=== PATIENT | male | born 1960 | race Caucasian/White ===

== ENCOUNTER 2021-08-02 00:53 | Inpatient (IN) | payer SELFPAY ==
[~2021-08-02] VITALS: Ht 172.7 cm; Wt 126.3 kg
[2021-08-02] MEDS ORDERED: VANCOMYCIN PER PHARMACY MC PRN (01:45)
[2021-08-02] MEDS ORDERED: IV NORMAL SALINE 1000ML BAG 1,000 ML IV SCH (01:45)
--- NOTE | 2021-08-02 01:45 | PHYS DOC ---
General Adult HPI: HPI: 60-year-old male, past medical history for tobacco use for 30 years, presents to the ED with complaints of exertional shortness of breath that has worsened over the past month, with associated abdominal pain and leg swelling. Patient reports he has not been to a physician in years. No known history of having COVID-19 infection. Is not vaccinated for Covid. Denies any known history of coronary artery disease, stroke, COPD or congestive heart failure. Takes no routinely prescribed medications. Denies any heavy alcohol consumption or history of liver disease. Denies any IV drug use. Review of Systems: Review of Systems: Constitutional: Denies fever or chills. [] Eyes: Denies change in visual acuity. [] HENT: Denies nasal congestion or sore throat. [] Respiratory: Denies cough or hemoptysis Cardiovascular: Denies chest pain or edema. [] GI: Denies nausea, vomiting, bloody stools or diarrhea. [] : Denies dysuria hematuria Musculoskeletal: Denies back pain or joint pain. [] Integument: Denies rash or diaphoresis Neurologic: Denies headache, focal weakness or sensory changes. [] Endocrine: Denies polyuria or polydipsia. [] Lymphatic: Denies swollen glands. [] Psychiatric: Denies depression or anxiety. [] Heart Score: C/O Chest Pain: No Risk Factors: Risk Factors: DM, Current or recent (<one month) smoker, HTN, HLP, family history of CAD, obesity. Risk Scores: Score 0 - 3: 2.5% MACE over next 6 weeks - Discharge Home Score 4 - 6: 20.3% MACE over next 6 weeks - Admit for Clinical Observation Score 7 - 10: 72.7% MACE over next 6 weeks - Early Invasive Strategies Physical Exam: PE: Constitutional: habitus retricts pts' ability to stand up/walk, weight centered in abdomen HENT: Normocephalic, atraumatic, Eyes: EOMI, conjunctiva normal, no discharge. Neck: Normal range of motion, supple, Cardiovascular: S1/2 present, irregular rhythm Lungs & Thorax: Speaking in 2-3 sentences, bilateral equal chest rise, increased work of breathing w/activity Abdomen: soft, very large abdominal pannus/hernia (at least 20 cm wide) with erythema/warmth over inferior aspect, no crepitus Skin: Warm, dry, no erythema, no rash. [] Back: No tenderness, no CVA tenderness. [] Extremities: no cyanosis, bilateral equal lower extremity edema Neurologic: Alert and oriented X 3, normal motor function, normal sensory function, no focal deficits noted. [] Psychologic: Affect normal, judgement normal, mood normal. [] : chaperoned by RN, circumsized, no rash or ttp, EKG: EKG: Irregular regular rhythm with no P waves found, QTC 489, cannot appreciate any ST elevations or ST depressions, patient denies any chest pain repeat EKG with concern for a flutter at 121 bpm unremarkable intervals, no TRAN/STD, after first dose of Cardizem patient reports that shortness of breath has improved Radiology/Procedures: Radiology/Procedures: IMAGING REPORT Signed PATIENT: CHLESY POE IACCOUNT: [id number] : 1960 LOCATION: ER AGE: 60 SEX: M EXAM STATUS: REG ER ORD. PHYSICIAN: JOSEY CHRISTIAN DO REASON: soa PROCEDURE: PORTABLE CHEST 1V EXAMINATION: XR CHEST 1V CLINICAL HISTORY: Shortness of breath EXAM DATE/TIME: 08/02/2021 1:44 AM COMPARISON: None FINDINGS: Lines, Tubes, and Devices: None. Cardiomediastinal Silhouette: Cardiomegaly. Aortic atherosclerotic calcification. Lungs and Pleura: Small right and questionable left pleural effusions with right greater than left basilar airspace disease. Bilateral hilar fullness with findings suggestive of pulmonary vascular congestion.. Bones and Soft Tissues: No acute osseous abnormality. IMPRESSION: Cardiomegaly with findings suggestive of mild volume overload as described. Electronically signed by: Evaristo Armijo DO (08/02/2021 1:59 AM) [facility] DICTATED and SIGNED BY: EVARISTO ARMIJO DO DATE: 08/02/21 [id number] IMAGING REPORT Signed PATIENT: CHELSY POE IACCOUNT: [id number] : 1960 LOCATION: ER AGE: 60 SEX: M EXAM STATUS: REG ER ORD. PHYSICIAN: JOSEY CHRISTIAN DO REASON: bl le swelling PROCEDURE: VENOUS LOWER EXT BILATERAL EXAMINATION: US BILATERAL LOWEREXTREMITY VENOUS DOPPLER (LOWER EXTREMITY VENOUS ULTRASOUND) CLINICAL HISTORY: Bilateral lower extremity edema TECHNIQUE: Sonographic grayscale images obtained of the bilateral lower extremity deep venous systems with color flow Doppler, compression, and augmentation techniques as indicated. Images obtained and stored in a permanent archive. COMPARISON: None FINDINGS: RIGHT: No evidence of absent flow or incompressibility within the common femoral vein, femoral vein, or popliteal vein. Visualized calf veins appear patent on limited evaluation. Subcutaneous edema in the lower leg. LEFT: No evidence of absent flow or incompressibility within the common femoral vein, femoral vein, or popliteal vein. Visualized calf veins appear patent on limited evaluation. Subcutaneous edema in the lower leg. IMPRESSION: No evidence of bilateral lower extremity DVT. Electronically signed by: Evaristo Armijo DO (08/02/2021 3:04 AM) [facility] DICTATED and SIGNED BY: EVARISTO ARMIJO DO DATE: 08/02/21 [id number] IMAGING REPORT Signed PATIENT: CHELSY POE IACCOUNT: [id number] : 1960 LOCATION: ER AGE: 60 SEX: M EXAM STATUS: REG ER ORD. PHYSICIAN: JOSEY CHRISTIAN DO REASON: soa, r/o pe;OMNI 350, 100ML PROCEDURE: CT ANGIO CHEST W ABD PEL W/ EXAMINATION: CTA CHEST_ABDOMEN_AND PELVIS CLINICAL HISTORY: Shortness of breath Technique: Spiral CT acquisition of the chest from the thoracic inlet to the upper abdomen following IV contrast with coronal and sagittal reformatted images also provided for review. 3D maximum intensity projection images also performed. CT Dose Reduction Employed: One or more of the following individualized dose reduction techniques were utilized for this examination: 1. Automated exposure control 2. Adjustment of the mA and/or kV according to patient size 3. Use of iterative reconstruction technique. Comparison: Chest radiograph same day FINDINGS: Suboptimal opacification of the pulmonary arterial system limits evaluation. Pulmonary Vasculature: No evidence of main, lobar, or definite proximal segmental pulmonary arterial thrombus. Lung Parenchyma, Pleura, and Airways: Moderate right pleural effusion with over lying airspace disease. Right apical blebs/bulla and mild scarring. Minimal curvilinear subsegmental atelectasis and/or scarring in the inferolateral upper lobes and left base. No focal consolidation. Central airways patent. Lower Neck, Lymph Nodes, and Mediastinum: Visualized thyroid gland within normal limits. No mediastinal lymphadenopathy. Prominent left axillary lymph nodes, nonspecific but possibly reactive. Heart, Pericardium, and Thoracic Vessels: Cardiomegaly. Aortic atherosclerotic calcification without aneurysm. Abdomen/Pelvis: Cholelithiasis. Liver, pancreas, spleen, adrenal glands, and kidneys unremarkable. Mildly filled urinary bladder. Coarse central prostatic calcifications. Mild colonic diverticulosis without definitive evidence of acute diverticulitis. No dilated bowel. Large ventral hernia containing loops of nonobstructed small bowel and colon as well as moderate free fluid. Hernia neck measures approximately 9.7 x 10.7 cm (AP x TRV). Smaller fat-containing ventral hernia immediately inferior to this. Additional intraperitoneal free fluid greatest in the perihepatic region. Arterial atherosclerotic calcification without aneurysm. Bones and Soft Tissues: Mild compression deformity in the L1 superior endplate with superimposed Schmorl's node. Remote bilateral L4 spondylolysis with grade 1 L4-5 anterolisthesis. Multilevel thoracolumbar degenerative changes. IMPRESSION: CHEST: No evidence of main, lobar, or definite proximal segmental pulmonary embolism on somewhat limited evaluation as described. Moderate right pleural effusion with overlying airspace disease. Cardiomegaly. ABDOMEN/PELVIS: Mild to moderate ascites. Large ventral hernia containing nonobstructed small bowel, colon, and free fluid. Electronically signed by: Evaristo Armijo DO (08/02/2021 4:41 AM) [facility] DICTATED and SIGNED BY: EVARISTO ARMIJO DO DATE: 08/02/21 [id number] Course & Med Decision Making: Course & Med Decision Making Pertinent Labs and Imaging studies reviewed. (See chart for details) Concern for new onset CHF and afib w/rvr in the setting of abdominal wall cellulitis. Dyspnea improved after cardizem slowed rate down-required cardizem infusion. No LE DVT. Pt not requiring any oxygen. Will admit for further medical management. Patient stable at time admission and agrees with this plan. I have spoken with the patient and/or caregivers. I have explained the patient's condition, diagnosis and treatment plan based on the information a vailable to me at this time. I have answered the patient's and/or caregivers questions and answered any concerns. The patient and/or caregivers have as good an understanding of the patient's diagnosis, condition and treatment plan as can be expected at this point. The patient has been stabilized within the capability of the emergency department. The patient will be transported for further care and management or will be moved to an observation or inpatient service. I have communicated with the staff or medical practitioner taking over this patient's care. Critical Care: Authorized and Performed by: Josey Christian DO Total critical care time: approximately 30 minutes Due to a high probability of clinically significant, life threatening deterioration, the patient required my highest level of preparedness to intervene emergently and I personally spent this critical care time directly and personally managing the patient. This critical care time included obtaining a history; examining the patient; pulse oximetry; ventilator management if necessary; ordering and review of studies; arranging urgent treatment with development of a management plan; evaluation of patient's response to treatment; frequent reassessment; discussion with patient/family; and, discussions with other providers. This critical care time was performed to assess and manage the high probability of imminent, life-threatening deterioration that could result in multi-organ failure. It was exclusive of separately billable procedures and treating other patients and teaching time. Please see MDM section and the rest of the note for further information on patient assessment and treatment. Dragon Disclaimer: Dragon Disclaimer: This electronic medical record was generated, in whole or in part, using a voice recognition dictation system. Departure Departure Impression: Primary Impression: Atrial fibrillation with RVR Additional Impressions: Abdominal wall cellulitis Acute exacerbation of congestive heart failure Disposition: ADMITTED INPATIENT Admitting Physician: RAYOMND (Dr. Schreiber) Condition: GUARDED Referrals: NO PCP (PCP) JOSEY CHRISTIAN DO Aug 02, 2021 01:45
[2021-08-02 01:57] LABS: BASO # 0.1 x10^3/uL (0.0-0.2); BASO % 1 % (0-3); EOS # 0.1 x10^3/uL (0.0-0.7); EOS % 1 % (0-3); HEMATOCRIT 46.3 % (39.0-53.0); HEMOGLOBIN 15.4 g/dL (13.0-17.5); LYMPH # 1.1 x10^3/uL (1.0-4.8); LYMPH % 16 % (24-48); MEAN CORPUSCULAR HEMOGLOBIN 30 pg (25-35); MEAN CORPUSCULAR HGB CONC 33 g/dL (31-37); MEAN CORPUSCULAR VOLUME 90 fL (79-100); MONO % 14 % (0-9); NEUT # 4.7 x10^3/uL (1.8-7.7); NEUT % 68 % (31-73); PLATELET COUNT 285 x10^3/uL (140-400); RED BLOOD COUNT 5.16 x10^6/uL (4.30-5.70); RED CELL DISTRIBUTION WIDTH 15.3 % (11.5-14.5); WHITE BLOOD COUNT 6.9 x10^3/uL (4.0-11.0)
--- NOTE | 2021-08-02 02:01 | RAD ---
EXAMINATION: XR CHEST 1V CLINICAL HISTORY: Shortness of breath EXAM DATE/TIME: 08/02/2021 1:44 AM COMPARISON: None FINDINGS: Lines, Tubes, and Devices: None. Cardiomediastinal Silhouette: Cardiomegaly. Aortic atherosclerotic calcification. Lungs and Pleura: Small right and questionable left pleural effusions with right greater than left ba silar airspace disease. Bilateral hilar fullness with findings suggestive of pulmonary vascular conge stion.. Bones and Soft Tissues: No acute osseous abnormality. IMPRESSION: Cardiomegaly with findings suggestive of mild volume overload as described. Electronically signed by: Evaristo Duran DO (08/02/2021 1:59 AM) [facility]
[2021-08-02 02:12] LABS: CALCIUM 8.6 mg/dL (8.5-10.1); CREATININE 1.2 mg/dL (0.7-1.3); POTASSIUM 3.9 mmol/L (3.5-5.1); PROTHROMBIN TIME PATIENT 14.8 SEC (11.7-14.0)
[2021-08-02 02:17] LABS: ALBUMIN 3.3 g/dL (3.4-5.0); ALBUMIN/GLOBULIN RATIO 0.9 (1.0-1.7); TOTAL BILIRUBIN 1.2 mg/dL (0.2-1.0)
[2021-08-02] MEDS ORDERED: VANCOMYCIN 2 GM in IV NORMAL SALINE 500ML BAG 500 ML IV ONE (03:00)
--- NOTE | 2021-08-02 03:07 | RAD ---
EXAMINATION: US BILATERAL LOWEREXTREMITY VENOUS DOPPLER (LOWER EXTREMITY VENOUS ULTRASOUND) CLINICAL HISTORY: Bilateral lower extremity edema TECHNIQUE: Sonographic grayscale images obtained of the bilateral lower extremity deep venous systems with color flow Doppler, compression, and augmentation techniques as indicated. Images obtained and stored in a permanent archive. COMPARISON: None FINDINGS: RIGHT: No evidence of absent flow or incompressibility within the common femoral vein, femoral vein, or popl iteal vein. Visualized calf veins appear patent on limited evaluation. Subcutaneous edema in the lowe r leg. LEFT: No evidence of absent flow or incompressibility within the common femoral vein, femoral vein, or popl iteal vein. Visualized calf veins appear patent on limited evaluation. Subcutaneous edema in the lowe r leg. IMPRESSION: No evidence of bilateral lower extremity DVT. Electronically signed by: Evaristo Duran DO (08/02/2021 3:04 AM) [facility]
[2021-08-02 03:39] LABS: BILIRUBIN,URINE NEGATIVE (NEG); CLARITY,URINE CLEAR; COLOR,URINE YELLOW; NITRITE,URINE NEGATIVE (NEG); PH,URINE 5.5 (<5.0-8.0); PROTEIN,URINE 100 mg/dL (NEG-TRACE)
[2021-08-02 03:45] LABS: BARBITURATES NEG (NEG); BENZODIAZEPINES NEG (NEG); CANNABINOIDS POS (NEG); COCAINE NEG (NEG); METHADONE NEG (NEG); OPIATES NEG (NEG); PHENCYCLIDINE NEG (NEG)
[2021-08-02 03:46] LABS: AMPHETAMINE/METHAMPHETAMINE NEG (NEG)
[2021-08-02 03:47] LABS: AMORPHOUS SEDIMENT,UR PRESENT /HPF; BACTERIA,URINE 0 /HPF (0-FEW); HYALINE CASTS, URINE OCCASIONAL /HPF; RBC,URINE 0 /HPF (0-2); WBC,URINE OCC /HPF (0-4)
[2021-08-02] MEDS ORDERED: IOHEXOL 350 MG/ML 100 ML VIAL. IV ONE (04:15)
[2021-08-02] MEDS ORDERED: CONTRAST GIVEN. MC PRN (04:15)
--- NOTE | 2021-08-02 04:44 | RAD ---
EXAMINATION: CTA CHEST_ABDOMEN_AND PELVIS CLINICAL HISTORY: Shortness of breath Technique: Spiral CT acquisition of the chest from the thoracic inlet to the upper abdomen following IV contrast with coronal and sagittal reformatted images also provided for review. 3D maximum intensi ty projection images also performed. CT Dose Reduction Employed: One or more of the following individualized dose reduction techniques wer e utilized for this examination: 1. Automated exposure control 2. Adjustment of the mA and/or kV ac cording to patient size 3. Use of iterative reconstruction technique. Comparison: Chest radiograph same day FINDINGS: Suboptimal opacification of the pulmonary arterial system limits evaluation. Pulmonary Vasculature: No evidence of main, lobar, or definite proximal segmental pulmonary arterial thrombus. Lung Parenchyma, Pleura, and Airways: Moderate right pleural effusion with overlying airspace disease . Right apical blebs/bulla and mild scarring. Minimal curvilinear subsegmental atelectasis and/or sca rring in the inferolateral upper lobes and left base. No focal consolidation. Central airways patent. Lower Neck, Lymph Nodes, and Mediastinum: Visualized thyroid gland within normal limits. No mediastin al lymphadenopathy. Prominent left axillary lymph nodes, nonspecific but possibly reactive. Heart, Pericardium, and Thoracic Vessels: Cardiomegaly. Aortic atherosclerotic calcification without aneurysm. Abdomen/Pelvis: Cholelithiasis. Liver, pancreas, spleen, adrenal glands, and kidneys unremarkable. Mi ldly filled urinary bladder. Coarse central prostatic calcifications. Mild colonic diverticulosis wit hout definitive evidence of acute diverticulitis. No dilated bowel. Large ventral hernia containing l oops of nonobstructed small bowel and colon as well as moderate free fluid. Hernia neck measures appr oximately 9.7 x 10.7 cm (AP x TRV). Smaller fat-containing ventral hernia immediately inferior to thi s. Additional intraperitoneal free fluid greatest in the perihepatic region. Arterial atherosclerotic calcification without aneurysm. Bones and Soft Tissues: Mild compression deformity in the L1 superior endplate with superimposed Schm orl's node. Remote bilateral L4 spondylolysis with grade 1 L4-5 anterolisthesis. Multilevel thoracolu mbar degenerative changes. IMPRESSION: CHEST: No evidence of main, lobar, or definite proximal segmental pulmonary embolism on somewhat limited rosanne luation as described. Moderate right pleural effusion with overlying airspace disease. Cardiomegaly. ABDOMEN/PELVIS: Mild to moderate ascites. Large ventral hernia containing nonobstructed small bowel, colon, and free fluid. Electronically signed by: Evaristo Duran DO (08/02/2021 4:41 AM) [facility]
--- NOTE | 2021-08-02 06:23 | NUR ---
Pharmacy Vancomycin Dosing Note S:Consulted to monitor and dose vancomycin started 08/02/21. O:[address] I is a 60 year old M with Cellulitis ABDOMINAL WALL . Height: 5 feet, 8 inches Weight: 100.0 kg [place] Body Weight: 68.40 Adjusted Body Weight: 81.04 Dosing Weight: Actual Other Antibiotics: LABS: Last BUN: 15 Last Creatinine: 1.2 Creatinine Clearance: 76 mL/min Last WBC: 6.9 Last Procalcitonin: - Tmax (past 24 hours): 97 Microbiology: 08/02 BCX PENDING I/O: Drug Levels: Last level: on at Last dose given 08/02/21 at 0300 Vancomycin Dosing: Loading Dose: 2000 mg x1 Dosing Weight: Actual Target Trough: - A: Based on: WEIGHT, CRCL~76, P: 1. INITIATE Vancomycin 1500 mg IV q12h AFTER 2000 MG LOADING DOSE 2. Follow up Trough level on 08/03/21 at 1430 3. Pharmacy will continue to monitor, follow and adjust therapy as needed. TYLER JIM [facility], 08/02/21 [id number]
--- NOTE | 2021-08-02 06:27 | EKG ---
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
--- NOTE | 2021-08-02 06:32 | EKG ---
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
[2021-08-02] MEDS ORDERED: PIP/TAZO PER PHARMACY MC PRN (09:00)
--- NOTE | 2021-08-02 09:13 | HP ---
DATE OF SERVICE: 08/02/2021 ADMIT DATE: 08/02/2021 CHIEF COMPLAINT: Shortness of breath, abdominal pain, leg swelling. HISTORY OF PRESENT ILLNESS: The patient is a pleasant 60-year-old male who appears older than his stated age. Basically, he came into the hospital because his abdomen is quite distended. It appears he has a very large abdominal hernia that has not been addressed. He states he never goes to the doctor. He is also short of breath. He is in heart failure. His BNP level is 3447. His chest x-ray is showing cardiomegaly and volume overload. He also has cellulitis on his abdomen. He is also tachycardic with some probable tachyarrhythmia perhaps atrial fibrillation. I discussed the case with ER physician. We are going to admit the patient and consult General Surgery, Cardiology and start IV antibiotics. PAST MEDICAL HISTORY: Noncompliance. He states he never goes to the doctor. ALLERGIES: None. FAMILY HISTORY: Diabetes. SOCIAL HISTORY: Does not drink, smoke or take drugs. MEDICATIONS: Reviewed, please refer to the MRAD. REVIEW OF SYSTEMS: GENERAL: No history of weight change, weakness or fevers. SKIN: No bruising, hair changes or rashes. EYES: No blurred, double or loss of vision. NOSE AND THROAT: No history of nosebleeds, hoarseness or sore throat. HEART: No history of palpitations, chest pain or shortness of breath on exertion. PULMONARY: He complains of shortness of breath. ABDOMEN: He complains of abdominal distention and abdominal pain. GENITOURINARY: No history of frequency, urgency, hesitancy or nocturia. NEUROLOGIC: Denies history of numbness, tingling, tremor or weakness. PSYCHIATRIC: No history of panic, anxiety or depression. ENDOCRINE: No history of heat or cold intolerance, polyuria or polydipsia. EXTREMITIES: He complains of edema. PHYSICAL EXAMINATION: VITALS: Within normal limits and are stable. GENERAL: He is in moderate distress, appears short of breath. HEENT: Normal cephalic atraumatic, external auditory canals are patent. EYES: Extraocular muscles are intact, pupils are equally round and reactive to light and accommodation. MUSCULOSKELETAL: Well developed, well nourished, good range of motion. ENDOCRINE: No thyromegaly was palpated, LYMPHATICS: No cervical chain or axillary nodes were noted. HEMATOPOIETIC: No bruising. NECK: Supple, no JVD, no thyromegaly was noted. LUNGS: Clear to auscultation in all lung fernández without rhonchi or wheezing. HEART: RRR, S1, S2 present. Peripheral pulses intact, no obvious murmurs were noted. ABDOMEN: He has a massive abdominal hernia with overlying cellulitis. EXTREMITIES: He has 2-3+ edema. NEUROLOGIC: He is very weak. PSYCHIATRIC: He appears depressed. SKIN: He has abdominal cellulitis. VASCULAR: Good capillary refill, neurovascular bundle appears to be intact. LABORATORY DATA: White count 6.9, hemoglobin 15.4, platelets 285. Electrolytes are pending. Troponin is 0.039. BNP is 3447. Chest x-ray shows cardiomegaly and vascular congestion. Drug screen is positive for marijuana. Urinalysis is negative. INR 1.2. COVID testing is negative. ASSESSMENT AND PLAN: Acute on chronic systolic and diastolic heart failure, massive abdominal hernia, cellulitis, and atrial fibrillation. The patient has been admitted. We will start IV antibiotics. Consult Cardiology. Consult General Surgery. Cardiac monitoring. He got a couple doses of vancomycin in the ER. We have a Cardizem drip ordered. Trend labs. Home meds. Deep venous thrombosis prophylaxis. CODE STATUS: Full code. PROGNOSIS: Long-term, guarded. BRANDON/ZHANG DR: Alexus TID: [id number]
[2021-08-02] MEDS ORDERED: MORPHINE SULFATE 2 MG/ML INJ. IV PRN (09:15)
[2021-08-02] MEDS: PIPERACILLIN/TAZOBACTAM 3.375 GM in IV NORMAL SALINE 50ML 50 ML IV SCH ×3 (10:50→23:51)
--- NOTE | 2021-08-02 10:55 | PDOC2 ---
CONSULT Date of Consult Date of Consult DATE: 08/02/21 TIME: 10:45 History of Present Illness Reason for Visit: The patient is a 60 year old male who was admitted with progressive abdominal distension and shortness of breath. He admits to not having a doctor or seeking medical attention in the past. He states the abdominal distension has been ongoing for some time. He is eating well and denies problems with bowel function. Past Medical History Past Medical History Asthma as a child, otherwise he denies Past Surgical History Past Surgical History denies Social History Quit Lives: Friends Current Problem List Problem List Problems Medical Problems: (1) Abdominal wall cellulitis Status: Acute (2) Acute exacerbation of congestive heart failure Status: Acute (3) Atrial fibrillation with RVR Status: Acute Current Medications Current Medications Current Medications Sodium Chloride 1,000 ml @ 1,000 mls/hr Q1H IV Last administered on 08/02/21at 01:45; Start 08/02/21 at 01:45; Stop 08/02/21 at 02:44; Status DC Diltiazem HCl (Cardizem Iv Push) 20 mg 1X ONCE IVP Last administered on at 02:05; Start 08/02/21 at 01:45; Stop 08/02/21 at 02:04; Status DC Vancomycin HCl (Vanco Per Pharmacy) 1 each PRN DAILY PRN MC SEE COMMENTS Last administered on 08/02/21at 06:20; Start 08/02/21 at 01:45; Stop 08/02/21 at 08:51; Status DC Vancomycin HCl 2 gm/Sodium Chloride 500 ml @ 250 mls/hr 1X ONCE IV Last administered on 08/02/21at 03:01; Start 08/02/21 at 03:00; Stop 08/02/21 at 04:59; Status DC Diltiazem HCl (Cardizem Iv Push) 20 mg 1X ONCE IVP Last administered on 08/02/21at 04:47; Start 08/02/21 at 03:45; Stop 08/02/21 at 03:46; Status DC Iohexol (Omnipaque 350 Mg/ml) 100 ml 1X ONCE IV Last administered on 08/02/21at 04:13; Start 08/02/21 at 04:15; Stop 08/02/21 at 04:16; Status DC Info (CONTRAST GIVEN -- Rx MONITORING) 1 each PRN DAILY PRN MC SEE COMMENTS; Start 08/02/21 at 04:15; Stop 08/04/21 at 04:14 Diltiazem HCl 125 mg/Sodium Chloride 125 ml @ 5 mls/hr CONT PRN IV PER PROTOCOL; Start 08/02/21 at 05:15 Vancomycin HCl 1.5 gm/Sodium Chloride 500 ml @ 250 mls/hr Q12H IV ; Start 08/02/21 at 15:00 Vancomycin HCl (Vancomycin Trough Level) 1 each 1X ONCE MC ; Start 08/03/21 at 14:30; Stop 08/03/21 at 14:31 Piperacillin Sod/ Tazobactam Sod (Zosyn Per Pharmacy) 1 each PRN DAILY PRN MC SEE COMMENTS; Start 08/02/21 at 09:00 Vancomycin HCl (Vanco Per Pharmacy) 1 each PRN DAILY PRN MC SEE COMMENTS; Start 08/02/21 at 09:00 Piperacillin Sod/ Tazobactam Sod 3.375 gm/Sodium Chloride 50 ml @ 100 mls/hr Q6HRS IV ; Start 08/02/21 at 10:00 Morphine Sulfate (Morphine Sulfate) 2 mg PRN Q2HR PRN IV PAIN; Start 08/02/21 at 09:15 Oxycodone/ Acetaminophen (Percocet 5/325) 1 tab PRN Q4HRS PRN PO MILD PAIN 1-3; Start 08/02/21 at 09:15 Oxycodone/ Acetaminophen (Percocet 10/325) 1 tab PRN Q4HRS PRN PO MODERATE- SEVERE PAIN; Start 08/02/21 at 09:15 Allergies Allergies: Coded Allergies: No Known Drug Allergies (Unverified , 08/02/21) ROS General: No: Chills, Night Sweats, Fatigue, Malaise, Appetite, Other Eyes: No Blurry vision, No Decreased vision, No Double vision, No Dry eyes, No Excessive tearing, No Eye Pain, No Itchy Eyes, No Loss of vision, No Photophobia, No Scotomata, No Uses contacts, No Uses glasses, No Other HEENT: No: Heacaches, Visual Changes, Hearing change, Nasal congestion, Nasal discharge, Oral lesions, Sinus pain, Sore Throat, Epistaxis, Sneezing, Snoring, Tinnitus, Vertigo, Vocal changes, Other ALLERGY AND IMMUNOLOGY: No: Hives, Insect Bite Sensitivity, Itchy/Watery Eyes, Nasal Congestion, Post Nasal Drip, Seasonal Allergies, Other ENDOCRINE: No: Breast Changes, Galactorrhea, Hair Pattern Changes, Hot Flashes, Malaise/lethargy, Mood Swings, Palpitations, Polydipsia/polyuria, Skin Changes, Temperature Intolerance, Unexpected Weight Changes, Other Respiratory: YES: Shortness of breath, SOB with excertion Gastrointestinal: Yes Other (distension) Genitourinary: No Dysuria, No Frequency, No Incontinence, No Hematuria, No Retention, No Discharge, No Urgency, No Pain, No Flank Pain, No Other, No , No , No , No , No , No , No Musculoskeletal: Yes Other (admits to lower extremity swelling) Neurological: No Behavorial Changes, No Bowel/Bladder ControlChng, No Confusion, No Dizziness, No Gait Disturbance, No Headaches, No Impaired Coord/balance, No Memory Loss, No Numbness/Tingling, No Seizures, No Speech Problems, No Tremors, No Visual Changes, No Weakness, No Other Physical Exam General: Alert, Oriented X3, Cooperative HEENT: Atraumatic Lungs: Clear to auscultation Heart: Other (tachy) Abdomen: Other (massive distension, pannus like appearance to abdomen with marked skin and subcutaneous edema, peau d orange, not tender) Neuro: Normal gait, Normal speech Psych/Mental Status: Mental status NL Vitals VITALS Vital Signs Date Time Temp Pulse Resp B/P (MAP) Pulse Ox O2 Delivery O2 Flow Rate FiO2 08/02/21 06:30 120 26 122/77 (92) 94 Room Air 08/02/21 02:15 97.0 97.0 Labs Labs Laboratory Tests Test 08/02/21 01:48 08/02/21 02:31 08/02/21 03:33 08/02/21 05:02 White Blood Count 6.9 x10^3/uL (4.0-11.0) Red Blood Count 5.16 x10^6/uL (4.30-5.70) Hemoglobin 15.4 g/dL (13.0-17.5) Hematocrit 46.3 % (39.0-53.0) Mean Corpuscular Volume 90 fL (79-100) Mean Corpuscular Hemoglobin 30 pg (25-35) Mean Corpuscular Hemoglobin Concent 33 g/dL (31-37) Red Cell Distribution Width 15.3 % (11.5-14.5) Platelet Count 285 x10^3/uL (140-400) Neutrophils (%) (Auto) 68 % (31-73) Lymphocytes (%) (Auto) 16 % (24-48) Monocytes (%) (Auto) 14 % (0-9) Eosinophils (%) (Auto) 1 % (0-3) Basophils (%) (Auto) 1 % (0-3) Neutrophils # (Auto) 4.7 x10^3/uL (1.8-7.7) Lymphocytes # (Auto) 1.1 x10^3/uL (1.0-4.8) Monocytes # (Auto) 1.0 x10^3/uL (0.0-1.1) Eosinophils # (Auto) 0.1 x10^3/uL (0.0-0.7) Basophils # (Auto) 0.1 x10^3/uL (0.0-0.2) Prothrombin Time 14.8 SEC (11.7-14.0) Prothromb Time International Ratio 1.2 (0.8-1.1) Activated Partial Thromboplast Time 34 SEC (24-38) Sodium Level 141 mmol/L (136-145) Potassium Level 3.9 mmol/L (3.5-5.1) Chloride Level 102 mmol/L (98-107) Carbon Dioxide Level 29 mmol/L (21-32) Anion Gap 10 (6-14) Blood Urea Nitrogen 15 mg/dL (8-26) Creatinine 1.2 mg/dL (0.7-1.3) Estimated GFR (Cockcroft-Gault) 62.0 BUN/Creatinine Ratio 13 (6-20) Glucose Level 109 mg/dL (70-99) Lactic Acid Level 1.2 mmol/L (0.4-2.0) Calcium Level 8.6 mg/dL (8.5-10.1) Magnesium Level 2.0 mg/dL (1.8-2.4) Total Bilirubin 1.2 mg/dL (0.2-1.0) Aspartate Amino Transf (AST/SGOT) 42 U/L (15-37) Alanine Aminotransferase (ALT/SGPT) 32 U/L (16-63) Alkaline Phosphatase 126 U/L (46-116) Troponin I Quantitative 0.039 ng/mL (0.000-0.055) 0.030 ng/mL (0.000-0.055) GY-Mgo-O-Type Natriuretic Peptide 3447 pg/mL (0-124) Total Protein 7.0 g/dL (6.4-8.2) Albumin 3.3 g/dL (3.4-5.0) Albumin/Globulin Ratio 0.9 (1.0-1.7) Lipase 42 U/L (73-393) Thyroid Stimulating Hormone (TSH) 3.518 uIU/mL (0.358-3.74) SARS-CoV-2 Antigen (Rapid) Negative (NEGATIVE) Urine Collection Type Unknown Urine Color Yellow Urine Clarity Clear Urine pH 5.5 (<5.0-8.0) Urine Specific [place] 1.010 (1.000-1.030) Urine Protein 100 mg/dL (NEG-TRACE) Urine Glucose (UA) Negative mg/dL (NEG) Urine Ketones (Stick) Negative mg/dL (NEG) Urine Blood Negative (NEG) Urine Nitrite Negative (NEG) Urine Bilirubin Negative (NEG) Urine Urobilinogen Dipstick 1.0 mg/dL (0.2 mg/dL) Urine Leukocyte Esterase Negative (NEG) Urine RBC 0 /HPF (0-2) Urine WBC Occ /HPF (0-4) Urine Squamous Epithelial Cells Few /LPF Urine Amorphous Sediment Present /HPF Urine Bacteria 0 /HPF (0-FEW) Urine Hyaline Casts Occasional /HPF Urine Mucus Slight /LPF Urine Opiates Screen Neg (NEG) Urine Methadone Screen Neg (NEG) Urine Barbiturates Neg (NEG) Urine Phencyclidine Screen Neg (NEG) Urine Amphetamine/Methamphetamine Neg (NEG) Urine Benzodiazepines Screen Neg (NEG) Urine Cocaine Screen Neg (NEG) Urine Cannabinoids Screen Pos (NEG) Urine Ethyl Alcohol Neg (NEG) Test 08/02/21 09:00 Troponin I Quantitative 0.040 ng/mL (0.000-0.055) Laboratory Tests Test 08/02/21 01:48 08/02/21 02:31 08/02/21 03:33 08/02/21 05:02 White Blood Count 6.9 x10^3/uL (4.0-11.0) Red Blood Count 5.16 x10^6/uL (4.30-5.70) Hemoglobin 15.4 g/dL (13.0-17.5) Hematocrit 46.3 % (39.0-53.0) Mean Corpuscular Volume 90 fL (79-100) Mean Corpuscular Hemoglobin 30 pg (25-35) Mean Corpuscular Hemoglobin Concent 33 g/dL (31-37) Red Cell Distribution Width 15.3 % (11.5-14.5) Platelet Count 285 x10^3/uL (140-400) Neutrophils (%) (Auto) 68 % (31-73) Lymphocytes (%) (Auto) 16 % (24-48) Monocytes (%) (Auto) 14 % (0-9) Eosinophils (%) (Auto) 1 % (0-3) Basophils (%) (Auto) 1 % (0-3) Neutrophils # (Auto) 4.7 x10^3/uL (1.8-7.7) Lymphocytes # (Auto) 1.1 x10^3/uL (1.0-4.8) Monocytes # (Auto) 1.0 x10^3/uL (0.0-1.1) Eosinophils # (Auto) 0.1 x10^3/uL (0.0-0.7) Basophils # (Auto) 0.1 x10^3/uL (0.0-0.2) Prothrombin Time 14.8 SEC (11.7-14.0) Prothromb Time International Ratio 1.2 (0.8-1.1) Activated Partial Thromboplast Time 34 SEC (24-38) Sodium Level 141 mmol/L (136-145) Potassium Level 3.9 mmol/L (3.5-5.1) Chloride Level 102 mmol/L (98-107) Carbon Dioxide Level 29 mmol/L (21-32) Anion Gap 10 (6-14) Blood Urea Nitrogen 15 mg/dL (8-26) Creatinine 1.2 mg/dL (0.7-1.3) Estimated GFR (Cockcroft-Gault) 62.0 BUN/Creatinine Ratio 13 (6-20) Glucose Level 109 mg/dL (70-99) Lactic Acid Level 1.2 mmol/L (0.4-2.0) Calcium Level 8.6 mg/dL (8.5-10.1) Magnesium Level 2.0 mg/dL (1.8-2.4) Total Bilirubin 1.2 mg/dL (0.2-1.0) Aspartate Amino Transf (AST/SGOT) 42 U/L (15-37) Alanine Aminotransferase (ALT/SGPT) 32 U/L (16-63) Alkaline Phosphatase 126 U/L (46-116) Troponin I Quantitative 0.039 ng/mL (0.000-0.055) 0.030 ng/mL (0.000-0.055) AL-Uac-H-Type Natriuretic Peptide 3447 pg/mL (0-124) Total Protein 7.0 g/dL (6.4-8.2) Albumin 3.3 g/dL (3.4-5.0) Albumin/Globulin Ratio 0.9 (1.0-1.7) Lipase 42 U/L (73-393) Thyroid Stimulating Hormone (TSH) 3.518 uIU/mL (0.358-3.74) SARS-CoV-2 Antigen (Rapid) Negative (NEGATIVE) Urine Collection Type Unknown Urine Color Yellow Urine Clarity Clear Urine pH 5.5 (<5.0-8.0) Urine Specific [place] 1.010 (1.000-1.030) Urine Protein 100 mg/dL (NEG-TRACE) Urine Glucose (UA) Negative mg/dL (NEG) Urine Ketones (Stick) Negative mg/dL (NEG) Urine Blood Negative (NEG) Urine Nitrite Negative (NEG) Urine Bilirubin Negative (NEG) Urine Urobilinogen Dipstick 1.0 mg/dL (0.2 mg/dL) Urine Leukocyte Esterase Negative (NEG) Urine RBC 0 /HPF (0-2) Urine WBC Occ /HPF (0-4) Urine Squamous Epithelial Cells Few /LPF Urine Amorphous Sediment Present /HPF Urine Bacteria 0 /HPF (0-FEW) Urine Hyaline Casts Occasional /HPF Urine Mucus Slight /LPF Urine Opiates Screen Neg (NEG) Urine Methadone Screen Neg (NEG) Urine Barbiturates Neg (NEG) Urine Phencyclidine Screen Neg (NEG) Urine Amphetamine/Methamphetamine Neg (NEG) Urine Benzodiazepines Screen Neg (NEG) Urine Cocaine Screen Neg (NEG) Urine Cannabinoids Screen Pos (NEG) Urine Ethyl Alcohol Neg (NEG) Test 08/02/21 09:00 Troponin I Quantitative 0.040 ng/mL (0.000-0.055) Assessment/Plan Assessment/Plan 60 year old male with very large ventral hernia; CT findings highlight multiple other abnormalities, very extensive skin and subcutaneous edema, intraabdominal fluid, right pleural effusion; The abdominal distension is due in part to the hernia with near loss of domain, but also the marked edema and fluid retention; ?heart failure as an etiology; lab testing not suggestive of liver failure; At this time the patient is not a surgical candidate due to his current medical problems. I do not believe that an attempt at surgical repair of the massive hernia will have any chance of success and would be very high risk with potential for serious morbidity. He currently has no evidence of bowel obstruction or urgent need for surgery. Recommend addressing his underlying medical problems, and suspect will take significant time for improvement of that. Subsequent to that we could reevaluate, although he is likely to require a specialized hernia center dedicated to complex, high risk hernias (i.e. hernia center at [facility]). Thanks for the consult, please call if needed in the future. SEJAL PURDY MD Aug 02, 2021 10:55
[2021-08-02 11:15] VITALS: BP 126/71
--- NOTE | 2021-08-02 11:55 | PDOC2 ---
CARDIAC CONSULT DATE OF CONSULT Date of Consult DATE: 08/02/21 TIME: 11:50 REASON FOR CONSULT Reason for Consult: AFIB with RVR CHF REFERRING PHYSICIAN Referring Physician: Dr. Conley SOURCE Source: Chart review, Patient HISTORY OF PRESENT ILLNESS HISTORY OF PRESENT ILLNESS This os a 60 yo male who presented secondary to shortness of breath, LE edema, and abdominal pain. Was noted in AFIB, which prompted this consult. Patient reports shortness of breath and LE edema has been present for the last year of so. Gets very short of breath and feels fluttering in his chest with exertional activities. Shortness of breath has been occurring at rest more frequently so he came into the ED for further evaluation and treatment. Was noted in AFIB with RVR. No recent illness or fevers. No sick contacts. No previous cardiac workup and has not seen a provider in many years. PAST MEDICAL HISTORY Cardiovascular: No pertinent hx Pulmonary: No pertinent hx GI: No pertinent hx Heme/Onc: No pertinent hx Infectious disease: No pertinent hx Renal/: No pertinent hx Endocrine: No pertinent hx PAST SURGICAL HISTORY Past Surgical History: No pertinent history FAMILY HISTORY Family History: Diabetes, Hypertension SOCIAL HISTORY Smoke: Quit ALCOHOL: none Drugs: None Lives: Roommate CURRENT MEDICATIONS CURRENT MEDICATIONS Current Medications Medications (Trade) Dose Ordered Sig/Lupillo Route PRN Reason Start Time Stop Time Status Last Admin Dose Admin Sodium Chloride 1,000 ml @ 1,000 mls/hr Q1H IV 08/02/21 01:45 08/02/21 02:44 DC 08/02/21 01:45 Diltiazem HCl (Cardizem Iv Push) 20 mg 1X ONCE IVP 08/02/21 01:45 08/02/21 02:04 DC 08/02/21 02:05 Vancomycin HCl (Vanco Per Pharmacy) 1 each PRN DAILY PRN MC SEE COMMENTS 08/02/21 01:45 08/02/21 08:51 DC 08/02/21 06:20 Vancomycin HCl 2 gm/Sodium Chloride 500 ml @ 250 mls/hr 1X ONCE IV 08/02/21 03:00 08/02/21 04:59 DC 08/02/21 03:01 Diltiazem HCl (Cardizem Iv Push) 20 mg 1X ONCE IVP 08/02/21 03:45 08/02/21 03:46 DC 08/02/21 04:47 Iohexol (Omnipaque 350 Mg/ml) 100 ml 1X ONCE IV 08/02/21 04:15 08/02/21 04:16 DC 08/02/21 04:13 Piperacillin Sod/ Tazobactam Sod 3.375 gm/Sodium Chloride 50 ml @ 100 mls/hr Q6HRS IV 08/02/21 10:00 08/02/21 10:50 Morphine Sulfate (Morphine Sulfate) 2 mg PRN Q2HR PRN IV PAIN 08/02/21 09:15 08/02/21 10:51 ALLERGIES ALLERGIES: Coded Allergies: No Known Drug Allergies (Unverified , 08/02/21) ROS Review of System 14 point ROS conducted with pertinent positives noted above in hPI PHYSICAL EXAM General: Alert, Oriented X3, Cooperative, No acute distress HEENT: Atraumatic Lungs: Other (crackles ) Heart: Other (AFIB with RVR ) Abdomen: Soft Extremities: Normal pulses, Other (2+ bilateral LE edema ) Skin: No breakdown, No significant lesion Neuro: Normal speech, Sensation intact Psych/Mental Status: Mental status NL, Mood NL MUSCULOSKELETAL: Osteoarthritic changes both hands VITALS/I&O VITALS/I&O: Vital Signs Date Time Temp Pulse Resp B/P (MAP) Pulse Ox O2 Delivery O2 Flow Rate FiO2 08/02/21 10:51 94 08/02/21 06:30 120 26 122/77 (92) Room Air 08/02/21 02:15 97.0 97.0 LABS Lab: Laboratory Tests Test 08/02/21 01:48 08/02/21 02:31 08/02/21 03:33 08/02/21 05:02 White Blood Count 6.9 x10^3/uL (4.0-11.0) Red Blood Count 5.16 x10^6/uL (4.30-5.70) Hemoglobin 15.4 g/dL (13.0-17.5) Hematocrit 46.3 % (39.0-53.0) Mean Corpuscular Volume 90 fL (79-100) Mean Corpuscular Hemoglobin 30 pg (25-35) Mean Corpuscular Hemoglobin Concent 33 g/dL (31-37) Red Cell Distribution Width 15.3 % (11.5-14.5) H Platelet Count 285 x10^3/uL (140-400) Neutrophils (%) (Auto) 68 % (31-73) Lymphocytes (%) (Auto) 16 % (24-48) L Monocytes (%) (Auto) 14 % (0-9) H Eosinophils (%) (Auto) 1 % (0-3) Basophils (%) (Auto) 1 % (0-3) Neutrophils # (Auto) 4.7 x10^3/uL (1.8-7.7) Lymphocytes # (Auto) 1.1 x10^3/uL (1.0-4.8) Monocytes # (Auto) 1.0 x10^3/uL (0.0-1.1) Eosinophils # (Auto) 0.1 x10^3/uL (0.0-0.7) Basophils # (Auto) 0.1 x10^3/uL (0.0-0.2) Prothrombin Time 14.8 SEC (11.7-14.0) H Prothrombin Time INR 1.2 (0.8-1.1) H Activated Partial Thromboplast Time 34 SEC (24-38) Sodium Level 141 mmol/L (136-145) Potassium Level 3.9 mmol/L (3.5-5.1) Chloride Level 102 mmol/L (98-107) Carbon Dioxide Level 29 mmol/L (21-32) Anion Gap 10 (6-14) Blood Urea Nitrogen 15 mg/dL (8-26) Creatinine 1.2 mg/dL (0.7-1.3) Estimated GFR (Cockcroft-Gault) 62.0 BUN/Creatinine Ratio 13 (6-20) Glucose Level 109 mg/dL (70-99) H Lactic Acid Level 1.2 mmol/L (0.4-2.0) Calcium Level 8.6 mg/dL (8.5-10.1) Magnesium Level 2.0 mg/dL (1.8-2.4) Total Bilirubin 1.2 mg/dL (0.2-1.0) H Aspartate Amino Transferase (AST) 42 U/L (15-37) H Alanine Aminotransferase (ALT) 32 U/L (16-63) Alkaline Phosphatase 126 U/L (46-116) H Troponin I Quantitative 0.039 ng/mL (0.000-0.055) 0.030 ng/mL (0.000-0.055) GY-Eyo-E-Type Natriuretic Peptide 3447 pg/mL (0-124) H Total Protein 7.0 g/dL (6.4-8.2) Albumin 3.3 g/dL (3.4-5.0) L Albumin/Globulin Ratio 0.9 (1.0-1.7) L Lipase 42 U/L (73-393) L Thyroid Stimulating Hormone (TSH) 3.518 uIU/mL (0.358-3.74) SARS-CoV-2 Antigen (Rapid) Negative (NEGATIVE) Urine Collection Type Unknown Urine Color Yellow Urine Clarity Clear Urine pH 5.5 (<5.0-8.0) Urine Specific [place] 1.010 (1.000-1.030) Urine Protein 100 mg/dL (NEG-TRACE) Urine Glucose (UA) Negative mg/dL (NEG) Urine Ketones (Stick) Negative mg/dL (NEG) Urine Blood Negative (NEG) Urine Nitrite Negative (NEG) Urine Bilirubin Negative (NEG) Urine Urobilinogen Dipstick 1.0 mg/dL (0.2 mg/dL) Urine Leukocyte Esterase Negative (NEG) Urine RBC 0 /HPF (0-2) Urine WBC Occ /HPF (0-4) Urine Squamous Epithelial Cells Few /LPF Urine Amorphous Sediment Present /HPF Urine Bacteria 0 /HPF (0-FEW) Urine Hyaline Casts Occasional /HPF Urine Mucus Slight /LPF Urine Opiates Screen Neg (NEG) Urine Methadone Screen Neg (NEG) Urine Barbiturates Neg (NEG) Urine Phencyclidine Screen Neg (NEG) Urine Amphetamine/Methamphetamine Neg (NEG) Urine Benzodiazepines Screen Neg (NEG) Urine Cocaine Screen Neg (NEG) Urine Cannabinoids Screen Pos (NEG) Urine Ethyl Alcohol Neg (NEG) Test 08/02/21 09:00 Troponin I Quantitative 0.040 ng/mL (0.000-0.055) Laboratory Tests 08/02/21 01:48 Laboratory Tests 08/02/21 01:48 ASSESSMENT/PLAN ASSESSMENT/PLAN 1. Acute respiratory failure secondary to CHF 2. Acute on chronic CHF with possible diastolic dysfunction 3. AFIB/flutter with RVR; s/p IV Cardizem. Gtt not initiated. Rate presently uncontrolled 4. Large ventral hernia; surgical team consulted Recommendations Diuresis with monitoring of renal function Start metoprolol for rate control Add ASA therapy [id number] correlating with a 0.6% risk of stroke per year. Consider addition of OAC Echo to assess LV systolic function TSH, lipids SS consult due to lack of insurance Supportive care Consider outpatient ischemic evaluation Further pending above. KE SILVER APRN Aug 02, 2021 11:55
[2021-08-02] MEDS: METOPROLOL TART IMMED RELEASE 50 MG TABLET. PO SCH ×3 (12:00→19:56)
[2021-08-02] MEDS ORDERED: FUROSEMIDE 40 MG/4 ML VIAL. IVP ONE (12:00)
--- NOTE | 2021-08-02 12:42 | EKG ---
[address] [place] [address] Test Date: 2021-08-02 Test Time: 12:40:21 Pat Name: CHELSY POE Department: Room: Gender: M Draw In Hand: LILIAN : 1960 Requested By: JORGE A CHRISTIAN Order Number: [id number] Reading MD: Measurements Intervals [place] Rate: 146 P: 90 ID: [id number] QRS: 224 QRSD: 80 T: 106 QT: 296 QTc: 463 Interpretive Statements SINUS TACHYCARDIA ATRIAL PREMATURE COMPLEX(ES), TRIGEMINY ABNORMAL RIGHT SUPERIOR AXIS DEVIATION LOW LIMB LEAD VOLTAGE QRS(T) CONTOUR ABNORMALITY CONSISTENT WITH ANTEROSEPTAL INFARCT AGE UNDETERMINED CONSISTENT WITH INFERIOR INFARCT PROBABLY OLD ABNORMAL ECG RI6.02 Compared to ECG 08/02/2021 05:13:46 T-wave abnormality no longer present Myocardial infarct finding still present
[2021-08-02 12:55] LABS: CHOLESTEROL/HDL RATIO 4.8
[2021-08-02] MEDS ORDERED: METOPROLOL IV PUSH 5 MG/5 ML VIAL. IVP ONE (13:00)
[2021-08-02] MEDS ORDERED: PERFLUTREN PROTEIN-A MICROSPHR 0.22 MG/ML 3 ML VIAL. IV ONE (13:15)
[2021-08-02 15:02] VITALS: BP 128/83
[2021-08-02] MEDS: POTASSIUM CHLORIDE 20 MEQ TABLET.ER. PO SCH (15:37)
[2021-08-02] MEDS: VANCOMYCIN 1.5 GM in IV NORMAL SALINE 500ML BAG 500 ML IV SCH (15:37)
--- NOTE | 2021-08-02 16:45 | EKG ---
[facility] [address] [place] [address] Test Date: 2021-08-02 Test Time: 12:40:21 Pat Name: CHELSY POE Department: Room: 648 1 Gender: M Morgue Attendant: LILIAN : 1960 Requested By: ABIGAIL DUFF Order Number: [id number] Reading MD: Sharad Cheng MD Measurements Intervals [place] Rate: 146 P: 90 MO: 108 QRS: 224 QRSD: 80 T: 106 QT: 296 QTc: 463 Interpretive Statements ATRIAL FIBRILLATION WITH RVR NON-SPECIFIC ST/T CHANGES Electronically Signed On 08-02-2021 17:26:15 CDT by Sharad Cheng MD
[2021-08-02] MEDS ORDERED: [UNRECOGNIZED DRUG - REMARK] (17:12)
--- NOTE | 2021-08-02 17:44 | CARD ---
MR#: [id number] Date of Study: 08/02/2021 Ordering Physician: LAURA CASON, Referring Physician: LAURA CASON, Tech: Penelope Galaviz [facility] APPROVED REPORT EXAM: Two-dimensional and M-mode echocardiogram with Doppler and color Doppler. Other Information Quality : AverageHR: 120bpm Rhythm : Atrial Fibrillation INDICATION Congestive Heart Failure RISK FACTORS Hypertension Obesity 2D DIMENSIONS RVDd4.3 (2.9-3.5cm)Left Atrium(2D)5.2 (1.6-4.0cm) IVSd1.0 (0.7-1.1cm)Aortic Root(2D)3.5 (2.0-3.7cm) LVDd6.1 (3.9-5.9cm)LVOT Diameter2.2 (1.8-2.4cm) PWd0.9 (0.7-1.1cm)LVDs4.1 (2.5-4.0cm) FS (%) 32.5 %SV113.3 ml Aortic Valve AoV Peak Emmanuel.74.7cm/Higinio Peak GR.2.2mmHg Mitral Valve MV E Ixcndtcs35.2cm/s TDI Lateral E' P. V10.70cm/sMedial E' P. V11.20cm/s E/Lateral E'9.1E/Medial E'8.7 Tricuspid Valve TR P. [id number]/sTR Peak Gr.21mmHg LEFT VENTRICLE The Left Ventricle is mildly dilated. There is normal left ventricular wall thickness. The ejection f raction is moderately to severely impaired. LV ejection fraction is 25 to 30%. There is global hypo kinesis of the left ventricle. RIGHT VENTRICLE The right ventricle is mildly dilated. There is normal right ventricular wall thickness. The right ve ntricle is mildly hypertrophied. Systolic function is mildly reduced. ATRIA The left atrium is mildly dilated. The right atrium is moderately dilated. The interatrial septum is intact with no evidence for an atrial septal defect or patent foramen ovale as noted on 2-D or Dopple r imaging. AORTIC VALVE The aortic valve is normal in structure and function. Doppler and Color Flow revealed trace to mild a ortic regurgitation. There is no significant aortic valvular stenosis. MITRAL VALVE The mitral valve is normal in structure and function. There is no evidence of mitral valve prolapse. There is no mitral valve stenosis. Doppler and Color-flow revealed mild mitral regurgitation. TRICUSPID VALVE The tricuspid valve is normal in structure and function. Doppler and Color Flow revealed mild to mode rate tricuspid regurgitation. Estimated PAP 36 mmHg. There is no tricuspid valve stenosis. PULMONIC VALVE The pulmonary valve is normal in structure and function. Doppler and Color Flow revealed mild pulmoni c valvular regurgitation. GREAT VESSELS The aortic root is normal in size. The ascending aorta is normal in size. The IVC is dilated and phillip apses <50% with inspiration. PERICARDIAL EFFUSION There is no evidence of significant pericardial effusion. Critical Notification Critical Value: No <Conclusion> The Left Ventricle is mildly dilated. The ejection fraction is moderately to severely impaired. LV ejection fraction is 25 to 30%. There is global hypokinesis of the left ventricle. Doppler and Color Flow revealed trace to mild aortic regurgitation. There is no significant aortic valvular stenosis. Doppler and Color-flow revealed mild mitral regurgitation. Doppler and Color Flow revealed mild to moderate tricuspid regurgitation. Estimated PAP 36 mmHg. Signed by : Laura Cason MD Electronically Approved : 08/02/2021 17:43:50
[2021-08-02] MEDS: oxyCODONE/APAP 5/325 1 TAB TABLET PO PRN (18:47)
[2021-08-02 19:21] VITALS: BP 104/75
--- NOTE | 2021-08-02 19:25 | NUR ---
PT SITTING ON SIDE OF BED ASSESSMENT COMPLETED VSS POC EXPLAINED PT C/O LOWER ABDOMEN PAIN WILL MEDICATE PT. CALL LIGHT IN REACH OF PT.WILL RESUME CARE AND CONTINUE TO MONITOR PT.
[2021-08-02] MEDS: oxyCODONE/APAP 10/325 1 TAB TABLET PO PRN (19:55)
[2021-08-02 22:46] VITALS: BP 97/67
[2021-08-03] VITALS (7 sets, daily range): BP systolic 87–111; BP diastolic 59–73
[2021-08-03] MEDS: VANCOMYCIN 1.5 GM in IV NORMAL SALINE 500ML BAG 500 ML IV SCH ×2 (02:23→15:00)
[2021-08-03] MEDS: PIPERACILLIN/TAZOBACTAM 3.375 GM in IV NORMAL SALINE 50ML 50 ML IV SCH ×4 (05:34→23:11)
[2021-08-03 08:08] LABS: BASO % 1 % (0-3); EOS # 0.2 x10^3/uL (0.0-0.7); EOS % 3 % (0-3); HEMATOCRIT 44.4 % (39.0-53.0); HEMOGLOBIN 14.1 g/dL (13.0-17.5); LYMPH % 18 % (24-48); MEAN CORPUSCULAR HEMOGLOBIN 30 pg (25-35); MEAN CORPUSCULAR HGB CONC 32 g/dL (31-37); MEAN CORPUSCULAR VOLUME 93 fL (79-100); MONO # 0.9 x10^3/uL (0.0-1.1); MONO % 17 % (0-9); NEUT # 3.3 x10^3/uL (1.8-7.7); NEUT % 61 % (31-73); PLATELET COUNT 227 x10^3/uL (140-400); RED BLOOD COUNT 4.77 x10^6/uL (4.30-5.70); RED CELL DISTRIBUTION WIDTH 15.9 % (11.5-14.5); WHITE BLOOD COUNT 5.4 x10^3/uL (4.0-11.0)
[2021-08-03 08:36] LABS: CREATININE 1.1 mg/dL (0.7-1.3); GFR 68.5
[2021-08-03] MEDS: LACTOBACILLUS RHAMNOSUS GG 1 CAPSULE. PO SCH ×2 (08:53→22:47)
[2021-08-03] MEDS: METOPROLOL TART IMMED RELEASE 50 MG TABLET. PO SCH (08:54)
[2021-08-03] MEDS: FUROSEMIDE 40 MG/4 ML VIAL. IVP SCH ×3 (08:54→14:44)
[2021-08-03] MEDS: oxyCODONE/APAP 5/325 1 TAB TABLET PO PRN (08:54)
[2021-08-03] MEDS: POTASSIUM CHLORIDE 20 MEQ TABLET.ER. PO SCH (08:54)
--- NOTE | 2021-08-03 11:36 | NUR ---
SS following for discharge planning. SS reviewed pt chart and discussed with pt RN. Pt is from home and is currently requiring oxygen at two liters nasal canula. COVID19 negative. Pt has no home oxygen. Cardiology and Surgery consulted at this time. No surgical plans at this time. Pt on IV Vancomycin, IV Zosyn, and IV Lasix. EF 25-30%. Self pay. Med Assist following. SS will continue to follow for discharge planning.
--- NOTE | 2021-08-03 11:37 | PDOC ---
[employer] PROGRESS NOTE Date of Service DOS: DATE: 08/03/21 TIME: 11:35 Chief Complaint Chief Complaint Respiratory failure Massive abdominal hernia A. fib CHF Cellulitis Noncompliance History of Present Illness History of Present Illness 08/03/2021 Patient seen and examined He is up in the chair His hernia is less swollen and less erythematous today the antibiotics and Lasix seem to be helping Chart reviewed Discussed with her Vitals/I&O Vitals/I&O: Vital Signs Date Time Temp Pulse Resp B/P (MAP) Pulse Ox O2 Delivery O2 Flow Rate FiO2 08/03/21 11:17 94 Room Air 2.0 08/03/21 11:09 97.8 114 18 104/59 (74) 97.8 I & O 08/02/21 08/02/21 08/03/21 15:00 23:00 07:00 Intake Total 220 ml 300 ml Output Total 1500 ml 200 ml Balance -1280 ml 100 ml Physical Exam General: Alert, Oriented X3, Cooperative, No acute distress Heart: Other (AFIB with RVR ) Abdomen: Soft Extremities: Normal pulses, Other (2+ bilateral LE edema ) Skin: No breakdown, No significant lesion Labs Labs: Laboratory Tests Test 08/03/21 06:15 White Blood Count 5.4 x10^3/uL (4.0-11.0) Red Blood Count 4.77 x10^6/uL (4.30-5.70) Hemoglobin 14.1 g/dL (13.0-17.5) Hematocrit 44.4 % (39.0-53.0) Mean Corpuscular Volume 93 fL (79-100) Mean Corpuscular Hemoglobin 30 pg (25-35) Mean Corpuscular Hemoglobin Concent 32 g/dL (31-37) Red Cell Distribution Width 15.9 % (11.5-14.5) Platelet Count 227 x10^3/uL (140-400) Neutrophils (%) (Auto) 61 % (31-73) Lymphocytes (%) (Auto) 18 % (24-48) Monocytes (%) (Auto) 17 % (0-9) Eosinophils (%) (Auto) 3 % (0-3) Basophils (%) (Auto) 1 % (0-3) Neutrophils # (Auto) 3.3 x10^3/uL (1.8-7.7) Lymphocytes # (Auto) 1.0 x10^3/uL (1.0-4.8) Monocytes # (Auto) 0.9 x10^3/uL (0.0-1.1) Eosinophils # (Auto) 0.2 x10^3/uL (0.0-0.7) Basophils # (Auto) 0.0 x10^3/uL (0.0-0.2) Sodium Level 140 mmol/L (136-145) Potassium Level 4.0 mmol/L (3.5-5.1) Chloride Level 104 mmol/L (98-107) Carbon Dioxide Level 26 mmol/L (21-32) Anion Gap 10 (6-14) Blood Urea Nitrogen 12 mg/dL (8-26) Creatinine 1.1 mg/dL (0.7-1.3) Estimated GFR (Cockcroft-Gault) 68.5 Glucose Level 104 mg/dL (70-99) Calcium Level 8.0 mg/dL (8.5-10.1) Assessment and Plan Assessmemt and Plan Problems Medical Problems: (1) Abdominal wall cellulitis Status: Acute (2) Acute exacerbation of congestive heart failure Status: Acute (3) Atrial fibrillation with RVR Status: Acute Respiratory failure Massive abdominal hernia A. fib CHF Cellulitis Noncompliance Plan IV antibiotics Lasix Negative chronotropic agents Home meds DVT prophylaxis Full code Appreciate cardiology and general surgery input Long-term prognosis guarded Comment Review of Relevant I have reviewed the following items elmira (where applicable) has been applied. Medications: Current Medications Medications (Trade) Dose Ordered Sig/Lupillo Route PRN Reason Start Time Stop Time Status Last Admin Dose Admin Vancomycin HCl 1.5 gm/Sodium Chloride 500 ml @ 250 mls/hr Q12H IV 08/02/21 15:00 08/03/21 02:23 Metoprolol Tartrate (Lopressor) 50 mg BID PO 08/02/21 12:00 08/03/21 08:54 Furosemide (Lasix) 40 mg 1X ONCE IVP 08/02/21 12:00 08/02/21 12:01 DC 08/02/21 13:02 Metoprolol Tartrate (Lopressor Vial) 5 mg 1X ONCE IVP 08/02/21 13:00 08/02/21 13:01 DC 08/02/21 13:02 Furosemide (Lasix) 40 mg BID92 IVP 08/03/21 09:00 08/03/21 08:54 Potassium Chloride (Klor-Con) 20 meq DAILYWBKFT PO 08/02/21 15:30 08/03/21 08:54 Lactobacillus Rhamnosus (Culturelle) 1 cap BID PO 08/03/21 09:00 08/03/21 08:53 Justifications for Admission Other Justification SHUKRI GIBBS III DO Aug 03, 2021 11:37
--- NOTE | 2021-08-03 11:48 | PDOC ---
CARDIO Progress Notes Date and Time Date of Service 08/03/21 Time of Evaluation 1130 Subjective Subjective: No Chest Pain, No shortness of breath, No Palpitations Vitals Vitals Vital Signs Date Time Temp Pulse Resp B/P (MAP) Pulse Ox O2 Delivery O2 Flow Rate FiO2 08/03/21 11:17 94 Room Air 2.0 08/03/21 11:09 97.8 114 18 104/59 (74) 97.8 Weight Weight [ ] Input and Output Intake and Output Intake and Output 08/03/21 07:00 Intake Total 520 ml Output Total 1700 ml Balance -1180 ml Intake Oral 520 ml Output Urine Total 1700 ml Laboratory Labs Laboratory Tests Test 08/03/21 06:15 White Blood Count 5.4 x10^3/uL (4.0-11.0) Red Blood Count 4.77 x10^6/uL (4.30-5.70) Hemoglobin 14.1 g/dL (13.0-17.5) Hematocrit 44.4 % (39.0-53.0) Mean Corpuscular Volume 93 fL (79-100) Mean Corpuscular Hemoglobin 30 pg (25-35) Mean Corpuscular Hemoglobin Concent 32 g/dL (31-37) Red Cell Distribution Width 15.9 % (11.5-14.5) Platelet Count 227 x10^3/uL (140-400) Neutrophils (%) (Auto) 61 % (31-73) Lymphocytes (%) (Auto) 18 % (24-48) Monocytes (%) (Auto) 17 % (0-9) Eosinophils (%) (Auto) 3 % (0-3) Basophils (%) (Auto) 1 % (0-3) Neutrophils # (Auto) 3.3 x10^3/uL (1.8-7.7) Lymphocytes # (Auto) 1.0 x10^3/uL (1.0-4.8) Monocytes # (Auto) 0.9 x10^3/uL (0.0-1.1) Eosinophils # (Auto) 0.2 x10^3/uL (0.0-0.7) Basophils # (Auto) 0.0 x10^3/uL (0.0-0.2) Sodium Level 140 mmol/L (136-145) Potassium Level 4.0 mmol/L (3.5-5.1) Chloride Level 104 mmol/L (98-107) Carbon Dioxide Level 26 mmol/L (21-32) Anion Gap 10 (6-14) Blood Urea Nitrogen 12 mg/dL (8-26) Creatinine 1.1 mg/dL (0.7-1.3) Estimated GFR (Cockcroft-Gault) 68.5 Glucose Level 104 mg/dL (70-99) Calcium Level 8.0 mg/dL (8.5-10.1) Microbiology Micro Microbiology 08/02/21 Blood Culture - Preliminary, Resulted NO GROWTH AFTER 1 DAY Physical Exam HEENT: Neck Supple W Full Motion Chest: Symmetric LUNGS: Other (crackles ) Heart: irregularly irregular (AFIB, rate controlled ) Abdomen: Soft N/T, Other (obese ) Extremities: Other (1+ bilateral LE edema ) Neurology: alert, oriented, follow commands Assessment Assessment 1. Acute respiratory failure secondary to CHF 2. Acute on chronic systolic CHF 3. Cardiomyopathy; echo with LVEF 25 to 30%. 4. AFIB/flutter with RVR; metoprolol added. HR remains elevated. Blood pressure low end 5. Large ventral hernia; surgical team following Recommendations Ongoing diuresis with monitoring of renal function. add aldactone Dig IV x1 now Continue metoprolol for rate control; will increase to 75mg as BP allows. Would ideally need to be on Toprol XL, but need to tailor meds to $4 list as patient does not have insurance BP will not tolerate Entresto or ACEi/ARB presently ASA therapy Add Eliquis for stroke prophylaxis given risk factors. Will provide with samples from out office SS following, patient has applied for disability benefits Supportive care Will need outpatient ischemic evaluation Supportive care Justicifation of Admission Dx: Justifications for Admission: Justification of Admission Dx: Yes CHF: Cardiac Arrhythmias KE SILVER APRN Aug 03, 2021 11:48
[2021-08-03] MEDS ORDERED: DIGOXIN IV 500 MCG/2 ML AMPUL. IV ONE (12:00)
[2021-08-03] MEDS: ASPIRIN ENTERIC COATED 81 MG TABLET.DR. PO SCH (14:44)
[2021-08-03] MEDS: oxyCODONE/APAP 10/325 1 TAB TABLET PO PRN ×2 (15:02→19:42)
[2021-08-03 15:09] LABS: VANC TR 15.8 mcg/mL (10.0-20.0)
[2021-08-03] MEDS: VANCOMYCIN PER PHARMACY MC PRN (15:43)
--- NOTE | 2021-08-03 15:43 | NUR ---
Pharmacy Vancomycin Dosing Note S: Consulted to monitor and dose vancomycin started 08/02/21. O: CHELSY POE I is a 60 year old M with abdominal wall cellulitis. Other Antibiotics: zosyn 3.375 gm q6hrs LABS: Last BUN: 12 Last Creatinine: 1.1 Creatinine Clearance: 97 mL/min Last WBC: 5.4 Last Procalcitonin: - Tmax (past 24 hours): 97.9 Microbiology: 08/02 blood cx: NGTD I/O: 520 / 1700 Drug Levels: Last Trough level: 15.8 on 08/03/21 at 1425 Last dose given 08/02/21 at 0223 Vancomycin Dosing: Dosing Weight: Actual Target Trough: 10-20 A: Based on: patient's renal function and trough level. P: 1. Continue Vancomycin 1500 mg IV q12h. 2. Follow up Trough level as needed. 3. Pharmacy will continue to monitor, follow and adjust therapy as needed. KALEIGH MEJIA, [facility], 08/03/21 [id number]
[2021-08-03] MEDS ORDERED: ENOXAPARIN 40 MG/0.4 ML SYRINGE. SQ SCH (21:00)
[2021-08-03] MEDS: APIXABAN 5 MG TABLET. PO SCH (22:54)
[2021-08-03] MEDS: METOPROLOL TART IMMED RELEASE 25 MG TABLET. PO SCH (22:54)
[2021-08-04 03:28] VITALS: BP 143/82
[2021-08-04] MEDS: VANCOMYCIN 1.5 GM in IV NORMAL SALINE 500ML BAG 500 ML IV SCH ×2 (03:46→15:36)
[2021-08-04] MEDS: oxyCODONE/APAP 10/325 1 TAB TABLET PO PRN ×3 (03:56→13:02)
[2021-08-04 05:00] LABS: BASO # 0.1 x10^3/uL (0.0-0.2); BASO % 1 % (0-3); EOS # 0.2 x10^3/uL (0.0-0.7); EOS % 3 % (0-3); HEMATOCRIT 46.8 % (39.0-53.0); HEMOGLOBIN 14.2 g/dL (13.0-17.5); LYMPH # 1.1 x10^3/uL (1.0-4.8); LYMPH % 18 % (24-48); MEAN CORPUSCULAR HEMOGLOBIN 29 pg (25-35); MEAN CORPUSCULAR HGB CONC 30 g/dL (31-37); MEAN CORPUSCULAR VOLUME 95 fL (79-100); MONO % 16 % (0-9); NEUT # 3.9 x10^3/uL (1.8-7.7); NEUT % 63 % (31-73); PLATELET COUNT 214 x10^3/uL (140-400); RED BLOOD COUNT 4.91 x10^6/uL (4.30-5.70); RED CELL DISTRIBUTION WIDTH 16.4 % (11.5-14.5); WHITE BLOOD COUNT 6.2 x10^3/uL (4.0-11.0)
[2021-08-04 05:13] LABS: CALCIUM 8.2 mg/dL (8.5-10.1); CREATININE 1.1 mg/dL (0.7-1.3); GFR 68.5; POTASSIUM 4.1 mmol/L (3.5-5.1)
[2021-08-04] MEDS: PIPERACILLIN/TAZOBACTAM 3.375 GM in IV NORMAL SALINE 50ML 50 ML IV SCH ×2 (06:20→11:31)
[2021-08-04 07:15] VITALS: BP 120/82
[2021-08-04] MEDS: ASPIRIN ENTERIC COATED 81 MG TABLET.DR. PO SCH (08:32)
[2021-08-04] MEDS: APIXABAN 5 MG TABLET. PO SCH ×2 (08:32→20:22)
[2021-08-04] MEDS: POTASSIUM CHLORIDE 20 MEQ TABLET.ER. PO SCH ×2 (08:32→12:37)
[2021-08-04] MEDS: SPIRONOLACTONE 25 MG TABLET PO SCH (08:32)
[2021-08-04] MEDS: LACTOBACILLUS RHAMNOSUS GG 1 CAPSULE. PO SCH ×2 (08:32→20:22)
[2021-08-04] MEDS: METOPROLOL TART IMMED RELEASE 25 MG TABLET. PO SCH ×2 (08:33→20:22)
[2021-08-04] MEDS: FUROSEMIDE 40 MG/4 ML VIAL. IVP SCH ×2 (08:34→15:35)
[2021-08-04] MEDS ORDERED: ANTI-COAG MONITOR BY PHARMACY. MC PRN (09:00)
[2021-08-04] MEDS: VANCOMYCIN PER PHARMACY MC PRN (09:01)
[2021-08-04 10:51] VITALS: BP 119/75
--- NOTE | 2021-08-04 10:51 | PDOC ---
[employer] PROGRESS NOTE Date of Service DOS: DATE: 08/04/21 TIME: 10:46 Chief Complaint Chief Complaint Respiratory failure Massive abdominal hernia A. fib CHF Cellulitis Noncompliance History of Present Illness History of Present Illness 08/04 Patient seen and examined. Patient walking about room, pleasant, and conversational Patient reported no bowel movement. Chart reviewed. Discussed case with RN and case management. 08/03/2021 Patient seen and examined He is up in the chair His hernia is less swollen and less erythematous today the antibiotics and Lasix seem to be helping Chart reviewed Discussed with her Vitals/I&O Vitals/I&O: Vital Signs Date Time Temp Pulse Resp B/P (MAP) Pulse Ox O2 Delivery O2 Flow Rate FiO2 08/04/21 09:14 97 Nasal Cannula 2.0 08/04/21 08:44 18 08/04/21 08:33 112 120/82 08/04/21 07:15 98.0 98.0 I & O 08/03/21 08/03/21 08/04/21 15:00 23:00 07:00 Intake Total 120 ml 540 ml 550 ml Output Total 850 ml Balance 120 ml 540 ml -300 ml Physical Exam General: Alert, Oriented X3, Cooperative, No acute distress Heart: Other (AFIB with RVR ) Abdomen: Soft Extremities: Normal pulses, Other (2+ bilateral LE edema ) Skin: No breakdown, No significant lesion Labs Labs: Laboratory Tests Test 08/03/21 14:25 08/04/21 04:30 Vancomycin Level Trough 15.8 mcg/mL (10.0-20.0) Vancomycin Last Dose Date 08/03/21 Vancomycin Last Dose Time 0300 White Blood Count 6.2 x10^3/uL (4.0-11.0) Red Blood Count 4.91 x10^6/uL (4.30-5.70) Hemoglobin 14.2 g/dL (13.0-17.5) Hematocrit 46.8 % (39.0-53.0) Mean Corpuscular Volume 95 fL (79-100) Mean Corpuscular Hemoglobin 29 pg (25-35) Mean Corpuscular Hemoglobin Concent 30 g/dL (31-37) Red Cell Distribution Width 16.4 % (11.5-14.5) Platelet Count 214 x10^3/uL (140-400) Neutrophils (%) (Auto) 63 % (31-73) Lymphocytes (%) (Auto) 18 % (24-48) Monocytes (%) (Auto) 16 % (0-9) Eosinophils (%) (Auto) 3 % (0-3) Basophils (%) (Auto) 1 % (0-3) Neutrophils # (Auto) 3.9 x10^3/uL (1.8-7.7) Lymphocytes # (Auto) 1.1 x10^3/uL (1.0-4.8) Monocytes # (Auto) 1.0 x10^3/uL (0.0-1.1) Eosinophils # (Auto) 0.2 x10^3/uL (0.0-0.7) Basophils # (Auto) 0.1 x10^3/uL (0.0-0.2) Sodium Level 139 mmol/L (136-145) Potassium Level 4.1 mmol/L (3.5-5.1) Chloride Level 103 mmol/L (98-107) Carbon Dioxide Level 31 mmol/L (21-32) Anion Gap 5 (6-14) Blood Urea Nitrogen 14 mg/dL (8-26) Creatinine 1.1 mg/dL (0.7-1.3) Estimated GFR (Cockcroft-Gault) 68.5 Glucose Level 106 mg/dL (70-99) Calcium Level 8.2 mg/dL (8.5-10.1) Review of Systems Review of Systems: ROS negative except as noted in HPI. Assessment and Plan Assessmemt and Plan Assessment: Respiratory failure Massive abdominal hernia A. fib CHF Cellulitis Noncompliance Plan: IV antibiotics Lasix Negative chronotropic agents Home meds DVT prophylaxis Full code Appreciate cardiology and general surgery input Long-term prognosis guarded Comment Review of Relevant I have reviewed the following items elmira (where applicable) has been applied. Medications: Current Medications Medications (Trade) Dose Ordered Sig/Lupillo Route PRN Reason Start Time Stop Time Status Last Admin Dose Admin Vancomycin HCl (Vancomycin Trough Level) 1 each 1X ONCE MC 08/03/21 14:30 08/03/21 14:31 DC 08/03/21 14:30 Digoxin (Lanoxin) 500 mcg 1X ONCE IV 08/03/21 12:00 08/03/21 12:01 DC 08/03/21 14:46 Aspirin (Ecotrin) 81 mg DAILYWBKFT PO 08/03/21 13:00 08/04/21 08:32 Metoprolol Tartrate (Lopressor) 75 mg BID PO 08/03/21 21:00 08/04/21 08:33 Apixaban (Eliquis) 5 mg BID PO 08/03/21 21:00 08/04/21 08:32 Spironolactone (Aldactone) 25 mg DAILY PO 08/04/21 09:00 08/04/21 08:32 Info (Anti-Coagulation Monitoring By Pharmacy) 1 each PRN DAILY PRN MC PER PROTOCOL 08/04/21 09:00 08/04/21 09:11 Justifications for Admission Other Justification SHUKRI GIBBS III DO Aug 04, 2021 10:51
--- NOTE | 2021-08-04 11:39 | PDOC ---
ABIGAIL DUFF RADIATION PROTECTION SPECIALIST 08/04/21 1139: CARDIO Progress Notes Date and Time Date of Service 08/04/2021 Time of Evaluation 1120 Subjective Subjective: No Chest Pain, No shortness of breath, No Palpitations Vitals Vitals Vital Signs Date Time Temp Pulse Resp B/P (MAP) Pulse Ox O2 Delivery O2 Flow Rate FiO2 08/04/21 10:51 97.8 110 18 119/75 (90) 96 Nasal Cannula 2.0 97.8 Weight Weight [ ] Input and Output Intake and Output Intake and Output 08/04/21 07:00 Intake Total 1210 ml Output Total 850 ml Balance 360 ml Intake Oral 660 ml IV Total 550 ml Output Urine Total 850 ml Laboratory Labs Laboratory Tests Test 08/03/21 14:25 08/04/21 04:30 Vancomycin Level Trough 15.8 mcg/mL (10.0-20.0) Vancomycin Last Dose Date 08/03/21 Vancomycin Last Dose Time 0300 White Blood Count 6.2 x10^3/uL (4.0-11.0) Red Blood Count 4.91 x10^6/uL (4.30-5.70) Hemoglobin 14.2 g/dL (13.0-17.5) Hematocrit 46.8 % (39.0-53.0) Mean Corpuscular Volume 95 fL (79-100) Mean Corpuscular Hemoglobin 29 pg (25-35) Mean Corpuscular Hemoglobin Concent 30 g/dL (31-37) Red Cell Distribution Width 16.4 % (11.5-14.5) Platelet Count 214 x10^3/uL (140-400) Neutrophils (%) (Auto) 63 % (31-73) Lymphocytes (%) (Auto) 18 % (24-48) Monocytes (%) (Auto) 16 % (0-9) Eosinophils (%) (Auto) 3 % (0-3) Basophils (%) (Auto) 1 % (0-3) Neutrophils # (Auto) 3.9 x10^3/uL (1.8-7.7) Lymphocytes # (Auto) 1.1 x10^3/uL (1.0-4.8) Monocytes # (Auto) 1.0 x10^3/uL (0.0-1.1) Eosinophils # (Auto) 0.2 x10^3/uL (0.0-0.7) Basophils # (Auto) 0.1 x10^3/uL (0.0-0.2) Sodium Level 139 mmol/L (136-145) Potassium Level 4.1 mmol/L (3.5-5.1) Chloride Level 103 mmol/L (98-107) Carbon Dioxide Level 31 mmol/L (21-32) Anion Gap 5 (6-14) Blood Urea Nitrogen 14 mg/dL (8-26) Creatinine 1.1 mg/dL (0.7-1.3) Estimated GFR (Cockcroft-Gault) 68.5 Glucose Level 106 mg/dL (70-99) Calcium Level 8.2 mg/dL (8.5-10.1) Microbiology Micro Microbiology 08/02/21 Blood Culture - Preliminary, Resulted NO GROWTH AFTER 2 DAYS Physical Exam HEENT: Neck Supple W Full Motion Chest: Symmetric LUNGS: Other (crackles ) Heart: irregularly irregular (AFIB, rate controlled ) Abdomen: Soft N/T, Other (obese ) Extremities: Other (2+ bilateral LE edema ) Neurology: alert, oriented, follow commands Assessment Assessment 1. Acute respiratory failure secondary to CHF 2. Acute on chronic systolic CHF: improving 3. Cardiomyopathy; echo with LVEF 25 to 30%. 4. AFIB/flutter with RVR: HR 110 5. Large ventral hernia; surgical team following Recommendations Continue lasix therapy. Continue aldactone and add lisinopril Metoprolol for rate control. Dig IV x1. Limited resource with no med ins. Will tailor made Rx with 4$ [employer] list ASA therapy Add Eliquis for stroke prophylaxis given risk factors. Will provide with samples from out office. Will consider for CVN SS following, patient has applied for disability benefits Will need outpatient ischemic evaluation Supportive care Justicifation of Admission Dx: Justifications for Admission: Justification of Admission Dx: Yes CHF: Cardiac Arrhythmias NAVYA FALL MD 08/04/21 5449: CARDIO Progress Notes Plan Plan Patient seen and examined. Agree with above nurse practitioner note. Continue diuresis. He is not yet ready for discharge given florid heart failure still. Supportive care. Consider outpt CVN when more stable. ABIGAIL DUFF APRN Aug 04, 2021 11:39 NAVYA FALL MD Aug 04, 2021 17:19
[2021-08-04] MEDS ORDERED: DIGOXIN IV 500 MCG/2 ML AMPUL. IV ONE (11:45)
[2021-08-04] MEDS: DOCUSATE SODIUM 100 MG CAPSULE. PO SCH (12:38)
[2021-08-04] MEDS: LISINOPRIL 5 MG TABLET. PO SCH (12:38)
--- NOTE | 2021-08-04 14:20 | NUR ---
SS following up with discharge planning. SS reviewed pt chart and discussed with pt RN. Pt is currently requiring oxygen at two liters nasal canula. COVID19 negative. Pt on IV Vancomycin, IV Zosyn, and IV Lasix. EF 25-30%. PT/OT recommended home with home healthcare. Self pay. Med Assist following. SS will continue to follow for discharge planning.
[2021-08-04 15:00] VITALS: BP 118/78
[2021-08-04 19:20] VITALS: BP 101/57
[2021-08-04] MEDS: AMOXICILLIN/K CLAV 875/125MG TABLET. PO SCH (20:22)
[2021-08-04] MEDS: ATORVASTATIN CALCIUM 20 MG TABLET PO SCH (20:22)
[2021-08-04 23:20] VITALS: BP 99/63
[2021-08-05 03:20] VITALS: BP 97/65
[2021-08-05 03:46] LABS: BASO % 1 % (0-3); EOS # 0.1 x10^3/uL (0.0-0.7); EOS % 2 % (0-3); HEMATOCRIT 42.1 % (39.0-53.0); HEMOGLOBIN 13.8 g/dL (13.0-17.5); LYMPH # 0.7 x10^3/uL (1.0-4.8); LYMPH % 10 % (24-48); MEAN CORPUSCULAR HEMOGLOBIN 30 pg (25-35); MEAN CORPUSCULAR HGB CONC 33 g/dL (31-37); MEAN CORPUSCULAR VOLUME 92 fL (79-100); MONO # 0.9 x10^3/uL (0.0-1.1); MONO % 14 % (0-9); NEUT # 4.7 x10^3/uL (1.8-7.7); NEUT % 73 % (31-73); PLATELET COUNT 219 x10^3/uL (140-400); RED BLOOD COUNT 4.57 x10^6/uL (4.30-5.70); RED CELL DISTRIBUTION WIDTH 15.3 % (11.5-14.5); WHITE BLOOD COUNT 6.4 x10^3/uL (4.0-11.0)
[2021-08-05] MEDS: oxyCODONE/APAP 10/325 1 TAB TABLET PO PRN ×2 (04:00→14:12)
[2021-08-05 04:01] LABS: CALCIUM 7.7 mg/dL (8.5-10.1); CREATININE 1.1 mg/dL (0.7-1.3); GFR 68.5; POTASSIUM 3.8 mmol/L (3.5-5.1)
[2021-08-05 05:24] LABS: CREATININE 1.1 mg/dL (0.7-1.3); GFR 68.5
[2021-08-05 07:00] VITALS: BP_SYST 118; BP_SYST 145; BP_DIAS 77; BP_DIAS 82
[2021-08-05] MEDS: FUROSEMIDE 40 MG/4 ML VIAL. IVP SCH ×2 (08:25→13:41)
[2021-08-05] MEDS: ASPIRIN ENTERIC COATED 81 MG TABLET.DR. PO SCH (08:25)
[2021-08-05] MEDS: POTASSIUM CHLORIDE 20 MEQ TABLET.ER. PO SCH (08:26)
[2021-08-05] MEDS: APIXABAN 5 MG TABLET. PO SCH ×2 (08:26→21:07)
[2021-08-05] MEDS: AMOXICILLIN/K CLAV 875/125MG TABLET. PO SCH ×2 (08:26→21:07)
[2021-08-05] MEDS: LACTOBACILLUS RHAMNOSUS GG 1 CAPSULE. PO SCH ×2 (08:26→21:07)
[2021-08-05] MEDS: SPIRONOLACTONE 25 MG TABLET PO SCH (08:26)
[2021-08-05] MEDS: METOPROLOL TART IMMED RELEASE 25 MG TABLET. PO SCH ×2 (08:27→21:06)
[2021-08-05] MEDS: LISINOPRIL 5 MG TABLET. PO SCH (08:27)
[2021-08-05] MEDS: DOCUSATE SODIUM 100 MG CAPSULE. PO SCH (08:29)
[2021-08-05 11:00] VITALS: BP 117/80
--- NOTE | 2021-08-05 12:05 | PDOC ---
[employer] PROGRESS NOTE Date of Service DOS: DATE: 08/05/21 TIME: 12:02 Chief Complaint Chief Complaint Respiratory failure Massive abdominal hernia A. fib CHF Cellulitis Noncompliance Constipation History of Present Illness History of Present Illness 08/05 Patient seen and examined. Patient walking about room, pleasant, and conversational Patient still reporting no bowel movement for several days. Chart reviewed. Discussed case with RN and case management. 08/04 Patient seen and examined. Patient walking about room, pleasant, and conversational Patient reported no bowel movement. Chart reviewed. Discussed case with RN and case management. 08/03/2021 Patient seen and examined He is up in the chair His hernia is less swollen and less erythematous today the antibiotics and Lasix seem to be helping Chart reviewed Discussed with her Vitals/I&O Vitals/I&O: Vital Signs Date Time Temp Pulse Resp B/P (MAP) Pulse Ox O2 Delivery O2 Flow Rate FiO2 08/05/21 08:27 104 145/82 08/05/21 08:00 Nasal Cannula 2.0 08/05/21 07:00 98.1 18 94 98.1 I & O 08/04/21 08/04/21 08/05/21 15:00 23:00 07:00 Intake Total 530 ml 300 ml 60 ml Output Total 1500 ml Balance 530 ml -1200 ml 60 ml Physical Exam General: Alert, Oriented X3, Cooperative, No acute distress Heart: Other (AFIB with RVR ) Abdomen: Soft Extremities: Normal pulses, Other (2+ bilateral LE edema ) Skin: No breakdown, No significant lesion Labs Labs: Laboratory Tests Test 08/05/21 03:30 08/05/21 04:30 White Blood Count 6.4 x10^3/uL (4.0-11.0) Red Blood Count 4.57 x10^6/uL (4.30-5.70) Hemoglobin 13.8 g/dL (13.0-17.5) Hematocrit 42.1 % (39.0-53.0) Mean Corpuscular Volume 92 fL (79-100) Mean Corpuscular Hemoglobin 30 pg (25-35) Mean Corpuscular Hemoglobin Concent 33 g/dL (31-37) Red Cell Distribution Width 15.3 % (11.5-14.5) Platelet Count 219 x10^3/uL (140-400) Neutrophils (%) (Auto) 73 % (31-73) Lymphocytes (%) (Auto) 10 % (24-48) Monocytes (%) (Auto) 14 % (0-9) Eosinophils (%) (Auto) 2 % (0-3) Basophils (%) (Auto) 1 % (0-3) Neutrophils # (Auto) 4.7 x10^3/uL (1.8-7.7) Lymphocytes # (Auto) 0.7 x10^3/uL (1.0-4.8) Monocytes # (Auto) 0.9 x10^3/uL (0.0-1.1) Eosinophils # (Auto) 0.1 x10^3/uL (0.0-0.7) Basophils # (Auto) 0.0 x10^3/uL (0.0-0.2) Sodium Level 136 mmol/L (136-145) Potassium Level 3.8 mmol/L (3.5-5.1) Chloride Level 100 mmol/L (98-107) Carbon Dioxide Level 30 mmol/L (21-32) Anion Gap 6 (6-14) Blood Urea Nitrogen 12 mg/dL (8-26) Creatinine 1.1 mg/dL (0.7-1.3) 1.1 mg/dL (0.7-1.3) Estimated GFR (Cockcroft-Gault) 68.5 68.5 Glucose Level 111 mg/dL (70-99) Calcium Level 7.7 mg/dL (8.5-10.1) Review of Systems Review of Systems: ROS negative except as noted in HPI. Assessment and Plan Assessmemt and Plan Assessment: Respiratory failure Massive abdominal hernia A. fib CHF Cellulitis Noncompliance Constipation Plan: IV antibiotics Lasix Negative chronotropic agents Mag citrate Home meds DVT prophylaxis Full code Appreciate cardiology and general surgery input Long-term prognosis guarded Comment Review of Relevant I have reviewed the following items elmira (where applicable) has been applied. Medications: Current Medications Medications (Trade) Dose Ordered Sig/Lupillo Route PRN Reason Start Time Stop Time Status Last Admin Dose Admin Atorvastatin Calcium (Lipitor) 20 mg QHS PO 08/04/21 21:00 08/04/21 20:22 Amoxicillin/ Clavulanate Potassium (Augmentin 875/ 125mg) 1 tab BID PO 08/04/21 21:00 08/05/21 08:26 Justifications for Admission Other Justification SHUKRI GIBBS III DO Aug 05, 2021 12:05
[2021-08-05] MEDS ORDERED: MAGNESIUM CITRATE 296 ML SOLUTION. PO ONE (12:30)
[2021-08-05] MEDS: MULTIVITAMIN with MINERAL TABLET. PO SCH (13:40)
[2021-08-05 15:00] VITALS: BP 106/73
[2021-08-05 19:00] VITALS: BP 140/78
[2021-08-05] MEDS: ATORVASTATIN CALCIUM 20 MG TABLET PO SCH (21:07)
[2021-08-05 22:33] VITALS: BP 122/65
[2021-08-06 02:45] VITALS: BP 122/64
[2021-08-06 04:03] LABS: BASO # 0.1 x10^3/uL (0.0-0.2); BASO % 1 % (0-3); EOS # 0.1 x10^3/uL (0.0-0.7); EOS % 2 % (0-3); HEMATOCRIT 42.7 % (39.0-53.0); LYMPH % 15 % (24-48); MEAN CORPUSCULAR HEMOGLOBIN 30 pg (25-35); MEAN CORPUSCULAR HGB CONC 33 g/dL (31-37); MEAN CORPUSCULAR VOLUME 91 fL (79-100); MONO # 1.1 x10^3/uL (0.0-1.1); MONO % 16 % (0-9); NEUT # 4.5 x10^3/uL (1.8-7.7); NEUT % 67 % (31-73); PLATELET COUNT 240 x10^3/uL (140-400); RED CELL DISTRIBUTION WIDTH 15.3 % (11.5-14.5); WHITE BLOOD COUNT 6.8 x10^3/uL (4.0-11.0)
[2021-08-06 04:13] LABS: CREATININE 0.9 mg/dL (0.7-1.3); GFR 86.4; POTASSIUM 3.9 mmol/L (3.5-5.1)
[2021-08-06] MEDS: oxyCODONE/APAP 10/325 1 TAB TABLET PO PRN (05:29)
[2021-08-06 07:43] VITALS: BP 147/93
[2021-08-06] MEDS: MULTIVITAMIN with MINERAL TABLET. PO SCH (08:36)
[2021-08-06] MEDS: LACTOBACILLUS RHAMNOSUS GG 1 CAPSULE. PO SCH ×2 (08:36→21:14)
[2021-08-06] MEDS: METOPROLOL TART IMMED RELEASE 25 MG TABLET. PO SCH ×2 (08:36→21:14)
[2021-08-06] MEDS: APIXABAN 5 MG TABLET. PO SCH ×2 (08:37→21:14)
[2021-08-06] MEDS: DOCUSATE SODIUM 100 MG CAPSULE. PO SCH (08:37)
[2021-08-06] MEDS: AMOXICILLIN/K CLAV 875/125MG TABLET. PO SCH ×2 (08:37→21:14)
[2021-08-06] MEDS: ASPIRIN ENTERIC COATED 81 MG TABLET.DR. PO SCH (08:37)
[2021-08-06] MEDS: POTASSIUM CHLORIDE 20 MEQ TABLET.ER. PO SCH (08:37)
[2021-08-06] MEDS: SPIRONOLACTONE 25 MG TABLET PO SCH (08:37)
[2021-08-06] MEDS: LISINOPRIL 5 MG TABLET. PO SCH (08:38)
[2021-08-06] MEDS: FUROSEMIDE 40 MG/4 ML VIAL. IVP SCH ×2 (08:38→16:36)
--- NOTE | 2021-08-06 10:43 | PDOC ---
[employer] PROGRESS NOTE Date of Service DOS: DATE: 08/06/21 TIME: 10:40 Chief Complaint Chief Complaint Respiratory failure Massive abdominal hernia A. fib CHF Cellulitis Noncompliance Constipation History of Present Illness History of Present Illness 08/06 Patient seen and examined while sitting in chair. Patient pleasant, and conversational Patient reported BM last night. Chart reviewed. Discussed case with RN 08/05 Patient seen and examined. Patient walking about room, pleasant, and conversational Patient still reporting no bowel movement for several days. Chart reviewed. Discussed case with RN and case management. 08/04 Patient seen and examined. Patient walking about room, pleasant, and conversational Patient reported no bowel movement. Chart reviewed. Discussed case with RN and case management. 08/03/2021 Patient seen and examined He is up in the chair His hernia is less swollen and less erythematous today the antibiotics and Lasix seem to be helping Chart reviewed Discussed with her Vitals/I&O Vitals/I&O: Vital Signs Date Time Temp Pulse Resp B/P (MAP) Pulse Ox O2 Delivery O2 Flow Rate FiO2 08/06/21 08:38 112 147/93 08/06/21 08:00 Nasal Cannula 2.0 08/06/21 07:43 97.7 18 95 97.7 I & O 08/05/21 08/05/21 08/06/21 15:00 23:00 07:00 Intake Total 600 ml 970 ml 0 ml Output Total 900 ml 2600 ml Balance -300 ml -1630 ml 0 ml Physical Exam General: Alert, Oriented X3, Cooperative, No acute distress Heart: Other (AFIB with RVR ) Abdomen: Soft Extremities: Normal pulses, Other (2+ bilateral LE edema ) Skin: No breakdown, No significant lesion Labs Labs: Laboratory Tests Test 08/05/21 14:40 08/06/21 02:55 Potassium Level 3.6 mmol/L (3.5-5.1) 3.9 mmol/L (3.5-5.1) White Blood Count 6.8 x10^3/uL (4.0-11.0) Red Blood Count 4.70 x10^6/uL (4.30-5.70) Hemoglobin 14.0 g/dL (13.0-17.5) Hematocrit 42.7 % (39.0-53.0) Mean Corpuscular Volume 91 fL (79-100) Mean Corpuscular Hemoglobin 30 pg (25-35) Mean Corpuscular Hemoglobin Concent 33 g/dL (31-37) Red Cell Distribution Width 15.3 % (11.5-14.5) Platelet Count 240 x10^3/uL (140-400) Neutrophils (%) (Auto) 67 % (31-73) Lymphocytes (%) (Auto) 15 % (24-48) Monocytes (%) (Auto) 16 % (0-9) Eosinophils (%) (Auto) 2 % (0-3) Basophils (%) (Auto) 1 % (0-3) Neutrophils # (Auto) 4.5 x10^3/uL (1.8-7.7) Lymphocytes # (Auto) 1.0 x10^3/uL (1.0-4.8) Monocytes # (Auto) 1.1 x10^3/uL (0.0-1.1) Eosinophils # (Auto) 0.1 x10^3/uL (0.0-0.7) Basophils # (Auto) 0.1 x10^3/uL (0.0-0.2) Sodium Level 137 mmol/L (136-145) Chloride Level 98 mmol/L (98-107) Carbon Dioxide Level 36 mmol/L (21-32) Anion Gap 3 (6-14) Blood Urea Nitrogen 11 mg/dL (8-26) Creatinine 0.9 mg/dL (0.7-1.3) Estimated GFR (Cockcroft-Gault) 86.4 Glucose Level 108 mg/dL (70-99) Calcium Level 8.0 mg/dL (8.5-10.1) Review of Systems Review of Systems: ROS negative except as noted in HPI. Assessment and Plan Assessmemt and Plan Assessment: Resolving respiratory failure Massive abdominal hernia A. fib CHF Cellulitis Noncompliance Constipation Plan: IV antibiotics Lasix Negative chronotropic agents Bowel hygiene Home meds DVT prophylaxis PT OT if possible Full code Appreciate cardiology and general surgery input He will need to go to a tertiary care center to have the massive hernia repaired eventually Long-term prognosis guarded Discharge disposition pending Comment Review of Relevant I have reviewed the following items elmira (where applicable) has been applied. Medications: Current Medications Medications (Trade) Dose Ordered Sig/Lupillo Route PRN Reason Start Time Stop Time Status Last Admin Dose Admin Magnesium Citrate (Citroma) 296 ml 1X ONCE PO 08/05/21 12:30 08/05/21 12:31 DC 08/05/21 13:39 Multivitamins (Thera M Plus) 1 tab DAILY PO 08/05/21 12:30 08/06/21 08:36 Justifications for Admission Other Justification SHUKRI GIBBS III DO Aug 06, 2021 10:43
[2021-08-06 11:00] VITALS: BP 114/79
--- NOTE | 2021-08-06 14:33 | PDOC2 ---
GI CONSULT Reason For Consult: constipation HPI: HPI: 60 year old male who was admitted with progressive abdominal distension and shortness of breath. He admits to not having a doctor or seeking medical attention in the past. He states the abdominal distension has been ongoing for some time. He is eating well and denied problems with bowel function on admission but has not had a BM in three days. he normally has a daily;y BM. He admits to flatus and had a small BM last night. He reports an unremarkable colonoscopy years ago. CT with Mild to moderate ascites. Large ventral hernia containing nonobstructed small bowel, colon, and free fluid. PMH: PMH: Past Medical History Past Medical History Asthma as a child, otherwise he denies Past Surgical History Past Surgical History denies Social History Quit Lives: Friends Current Medications Current Medications Current Medications Sodium Chloride 1,000 ml @ 1,000 mls/hr Q1H IV Last administered on 08/02/21at 01:45; Start 08/02/21 at 01:45; Stop 08/02/21 at 02:44; Status DC Diltiazem HCl (Cardizem Iv Push) 20 mg 1X ONCE IVP Last administered on 08/02/21at 02:05; Start 08/02/21 at 01:45; Stop 08/02/21 at 02:04; Status DC Vancomycin HCl (Vanco Per Pharmacy) 1 each PRN DAILY PRN MC SEE COMMENTS Last administered on 08/02/21at 06:20; Start 08/02/21 at 01:45; Stop 08/02/21 at 08:51; Status DC Vancomycin HCl 2 gm/Sodium Chloride 500 ml @ 250 mls/hr 1X ONCE IV Last administered on 08/02/21at 03:01; Start 08/02/21 at 03:00; Stop 08/02/21 at 04:59; Status DC Diltiazem HCl (Cardizem Iv Push) 20 mg 1X ONCE IVP Last administered on 08/02/21at 04:47; Start 08/02/21 at 03:45; Stop 08/02/21 at 03:46; Status DC Iohexol (Omnipaque 350 Mg/ml) 100 ml 1X ONCE IV Last administered on 08/02/21at 04:13; Start 08/02/21 at 04:15; Stop 08/02/21 at 04:16; Status DC Info (CONTRAST GIVEN -- Rx MONITORING) 1 each PRN DAILY PRN MC SEE COMMENTS; Start 08/02/21 at 04:15; Stop 08/04/21 at 04:14 Diltiazem HCl 125 mg/Sodium Chloride 125 ml @ 5 mls/hr CONT PRN IV PER PROTOCOL; Start 08/02/21 at 05:15 Vancomycin HCl 1.5 gm/Sodium Chloride 500 ml @ 250 mls/hr Q12H IV ; Start 08/02/21 at 15:00 Vancomycin HCl (Vancomycin Trough Level) 1 each 1X ONCE MC ; Start 08/03/21 at 14:30; Stop 08/03/21 at 14:31 Piperacillin Sod/ Tazobactam Sod (Zosyn Per Pharmacy) 1 each PRN DAILY PRN MC SEE COMMENTS; Start 08/02/21 at 09:00 Vancomycin HCl (Vanco Per Pharmacy) 1 each PRN DAILY PRN MC SEE COMMENTS; Start 08/02/21 at 09:00 Piperacillin Sod/ Tazobactam Sod 3.375 gm/Sodium Chloride 50 ml @ 100 mls/hr Q6HRS IV ; Start 08/02/21 at 10:00 Morphine Sulfate (Morphine Sulfate) 2 mg PRN Q2HR PRN IV PAIN; Start 08/02/21 at 09:15 Oxycodone/ Acetaminophen (Percocet 5/325) 1 tab PRN Q4HRS PRN PO MILD PAIN 1-3; Start 08/02/21 at 09:15 Oxycodone/ Acetaminophen (Percocet 10/325) 1 tab PRN Q4HRS PRN PO MODERATE- SEVERE PAIN; Start 08/02/21 at 09:15 Allergies Allergies: Coded Allergies: No Known Drug Allergies (Unverified , 08/02/21) Social History: Smoke: Quit ALCOHOL: none Drugs: None ROS: ROS General: No: Chills, Night Sweats, Fatigue, Malaise, Appetite, Other Eyes: No Blurry vision, No Decreased vision, No Double vision, No Dry eyes, No Excessive tearing, No Eye Pain, No Itchy Eyes, No Loss of vision, No Photophobia, No Scotomata, No Uses contacts, No Uses glasses, No Other HEENT: No: Heacaches, Visual Changes, Hearing change, Nasal congestion, Nasal discharge, Oral lesions, Sinus pain, Sore Throat, Epistaxis, Sneezing, Snoring, Tinnitus, Vertigo, Vocal changes, Other ALLERGY AND IMMUNOLOGY: No: Hives, Insect Bite Sensitivity, Itchy/Watery Eyes, Nasal Congestion, Post Nasal Drip, Seasonal Allergies, Other ENDOCRINE: No: Breast Changes, Galactorrhea, Hair Pattern Changes, Hot Flashes, Malaise/lethargy, Mood Swings, Palpitations, Polydipsia/polyuria, Skin Changes, Temperature Intolerance, Unexpected Weight Changes, Other Respiratory: YES: Shortness of breath, SOB with excertion Gastrointestinal: Yes Other (distension) Genitourinary: No Dysuria, No Frequency, No Incontinence, No Hematuria, No Retention, No Discharge, No Urgency, No Pain, No Flank Pain, No Other, No , No , No , No , No , No , No Musculoskeletal: Yes Other (admits to lower extremity swelling) Neurological: No Behavorial Changes, No Bowel/Bladder ControlChng, No Confusion, No Dizziness, No Gait Disturbance, No Headaches, No Impaired Coord/balance, No Memory Loss, No Numbness/Tingling, No Seizures, No Speech Problems, No Tremors, No Visual Changes, No Weakness, No Other VItals: Vitals: Vital Signs Date Time Temp Pulse Resp B/P (MAP) Pulse Ox O2 Delivery O2 Flow Rate FiO2 08/06/21 11:00 98.4 112 114/79 (91) 95 Nasal Cannula 2.0 98.4 08/06/21 07:43 18 Labs: Labs: Laboratory Tests Test 08/05/21 14:40 08/06/21 02:55 Potassium Level 3.6 mmol/L (3.5-5.1) 3.9 mmol/L (3.5-5.1) White Blood Count 6.8 x10^3/uL (4.0-11.0) Red Blood Count 4.70 x10^6/uL (4.30-5.70) Hemoglobin 14.0 g/dL (13.0-17.5) Hematocrit 42.7 % (39.0-53.0) Mean Corpuscular Volume 91 fL (79-100) Mean Corpuscular Hemoglobin 30 pg (25-35) Mean Corpuscular Hemoglobin Concent 33 g/dL (31-37) Red Cell Distribution Width 15.3 % (11.5-14.5) Platelet Count 240 x10^3/uL (140-400) Neutrophils (%) (Auto) 67 % (31-73) Lymphocytes (%) (Auto) 15 % (24-48) Monocytes (%) (Auto) 16 % (0-9) Eosinophils (%) (Auto) 2 % (0-3) Basophils (%) (Auto) 1 % (0-3) Neutrophils # (Auto) 4.5 x10^3/uL (1.8-7.7) Lymphocytes # (Auto) 1.0 x10^3/uL (1.0-4.8) Monocytes # (Auto) 1.1 x10^3/uL (0.0-1.1) Eosinophils # (Auto) 0.1 x10^3/uL (0.0-0.7) Basophils # (Auto) 0.1 x10^3/uL (0.0-0.2) Sodium Level 137 mmol/L (136-145) Chloride Level 98 mmol/L (98-107) Carbon Dioxide Level 36 mmol/L (21-32) Anion Gap 3 (6-14) Blood Urea Nitrogen 11 mg/dL (8-26) Creatinine 0.9 mg/dL (0.7-1.3) Estimated GFR (Cockcroft-Gault) 86.4 Glucose Level 108 mg/dL (70-99) Calcium Level 8.0 mg/dL (8.5-10.1) Imaging: Imaging: [facility] [address] [address] IMAGING REPORT Signed PATIENT: CHELSY POE IACCOUNT: [id number] : 1960 LOCATION: ER AGE: 60 SEX: M EXAM STATUS: REG ER ORD. PHYSICIAN: JORGE A CHRISTIAN DO REASON: soa, r/o pe;OMNI 350, 100ML PROCEDURE: CT ANGIO CHEST W ABD PEL W/ EXAMINATION: CTA CHEST_ABDOMEN_AND PELVIS CLINICAL HISTORY: Shortness of breath Technique: Spiral CT acquisition of the chest from the thoracic inlet to the upper abdomen following IV contrast with coronal and sagittal reformatted images also provided for review. 3D maximum intensity projection images also performed. CT Dose Reduction Employed: One or more of the following individualized dose reduction techniques were utilized for this examination: 1. Automated exposure control 2. Adjustment of the mA and/or kV according to patient size 3. Use of iterative reconstruction technique. Comparison: Chest radiograph same day FINDINGS: Suboptimal opacification of the pulmonary arterial system limits evaluation. Pulmonary Vasculature: No evidence of main, lobar, or definite proximal segmental pulmonary arterial thrombus. Lung Parenchyma, Pleura, and Airways: Moderate right pleural effusion with ov erlying airspace disease. Right apical blebs/bulla and mild scarring. Minimal curvilinear subsegmental atelectasis and/or scarring in the inferolateral upper lobes and left base. No focal consolidation. Central airways patent. Lower Neck, Lymph Nodes, and Mediastinum: Visualized thyroid gland within normal limits. No mediastinal lymphadenopathy. Prominent left axillary lymph nodes, nonspecific but possibly reactive. Heart, Pericardium, and Thoracic Vessels: Cardiomegaly. Aortic atherosclerotic calcification without aneurysm. Abdomen/Pelvis: Cholelithiasis. Liver, pancreas, spleen, adrenal glands, and kidneys unremarkable. Mildly filled urinary bladder. Coarse central prostatic calcifications. Mild colonic diverticulosis without definitive evidence of acute diverticulitis. No dilated bowel. Large ventral hernia containing loops of nonobstructed small bowel and colon as well as moderate free fluid. Hernia neck measures approximately 9.7 x 10.7 cm (AP x TRV). Smaller fat-containing ventral hernia immediately inferior to this. Additional intraperitoneal free fluid greatest in the perihepatic region. Arterial atherosclerotic calcification without aneurysm. Bones and Soft Tissues: Mild compression deformity in the L1 superior endplate with superimposed Schmorl's node. Remote bilateral L4 spondylolysis with grade 1 L4-5 anterolisthesis. Multilevel thoracolumbar degenerative changes. IMPRESSION: CHEST: No evidence of main, lobar, or definite proximal segmental pulmonary embolism on somewhat limited evaluation as described. Moderate right pleural effusion with overlying airspace disease. Cardiomegaly. ABDOMEN/PELVIS: Mild to moderate ascites. Large ventral hernia containing nonobstructed small bowel, colon, and free fluid. Electronically signed by: Evaristo Duran DO (08/02/2021 4:41 AM) [facility] PE: Physical Exam General: Alert, Oriented X3, Cooperative HEENT: Atraumatic Lungs: Clear to auscultation Heart: Other (tachy) Abdomen: Other (massive distension, pannus like appearance to abdomen with marked skin and subcutaneous edema, peau d orange, not tender) Neuro: Normal gait, Normal speech Psych/Mental Status: Mental status NL A/P: A/P: A 1) Constipation- suspect narcotic induced P 1)Clear liquid diet 2) Start Mirlax 3) Relistor ravinn SEEMA JOHNSON MD Aug 06, 2021 14:33
[2021-08-06 15:00] VITALS: BP 114/59
[2021-08-06] MEDS ORDERED: METHYLNALTREXONE 12 MG/0.6 ML VIAL. SQ ONE (15:00)
--- NOTE | 2021-08-06 15:56 | PDOC ---
CARDIOLOGY PROGRESS NOTE SUBJECTIVE: No acute events overnight Remains in atrial flutter with a heart rate of 110-120 No acute cardiovascular issues He has been struggling with difficulty with constipation. GI has evaluated the patient. OBJECTIVE: Vital Signs/I&O: Vital Signs Date Time Temp Pulse Resp B/P (MAP) Pulse Ox O2 Delivery O2 Flow Rate FiO2 08/06/21 11:00 98.4 112 114/79 (91) 95 Nasal Cannula 2.0 98.4 08/06/21 07:43 18 I & O 08/05/21 08/05/21 08/06/21 15:00 23:00 07:00 Intake Total 600 ml 970 ml 0 ml Output Total 900 ml 2600 ml Balance -300 ml -1630 ml 0 ml Objective: HEENT: Neck Supple W Full Motion Chest: Symmetric LUNGS: Other (crackles ) Heart: irregularly irregular (AFIB, rate controlled ) Abdomen: Soft N/T, Other (obese ) Extremities: Other (2+ bilateral LE edema ) Neurology: alert, oriented, follow commands CURRENT MEDICATIONS: Atorvastatin 20 mg daily, lisinopril 5 mg daily, spironolactone 25 mg daily, Eliquis 5 mg p.o. twice daily, metoprolol 75 mg p.o. twice daily, aspirin 81 mg daily DIAGNOSTIC TESTING: Labs reviewed Labs: Laboratory Tests 08/06/21 02:55 Laboratory Tests Test 08/06/21 02:55 White Blood Count 6.8 x10^3/uL (4.0-11.0) Red Blood Count 4.70 x10^6/uL (4.30-5.70) Hemoglobin 14.0 g/dL (13.0-17.5) Hematocrit 42.7 % (39.0-53.0) Mean Corpuscular Volume 91 fL (79-100) Mean Corpuscular Hemoglobin 30 pg (25-35) Mean Corpuscular Hemoglobin Concent 33 g/dL (31-37) Red Cell Distribution Width 15.3 % (11.5-14.5) H Platelet Count 240 x10^3/uL (140-400) Neutrophils (%) (Auto) 67 % (31-73) Lymphocytes (%) (Auto) 15 % (24-48) L Monocytes (%) (Auto) 16 % (0-9) H Eosinophils (%) (Auto) 2 % (0-3) Basophils (%) (Auto) 1 % (0-3) Neutrophils # (Auto) 4.5 x10^3/uL (1.8-7.7) Lymphocytes # (Auto) 1.0 x10^3/uL (1.0-4.8) Monocytes # (Auto) 1.1 x10^3/uL (0.0-1.1) Eosinophils # (Auto) 0.1 x10^3/uL (0.0-0.7) Basophils # (Auto) 0.1 x10^3/uL (0.0-0.2) Sodium Level 137 mmol/L (136-145) Potassium Level 3.9 mmol/L (3.5-5.1) Chloride Level 98 mmol/L (98-107) Carbon Dioxide Level 36 mmol/L (21-32) H Anion Gap 3 (6-14) L Blood Urea Nitrogen 11 mg/dL (8-26) Creatinine 0.9 mg/dL (0.7-1.3) Estimated GFR (Cockcroft-Gault) 86.4 Glucose Level 108 mg/dL (70-99) H Calcium Level 8.0 mg/dL (8.5-10.1) L ASSESSMENT: 1. Acute respiratory failure secondary to CHF 2. Acute on chronic systolic CHF: improving 3. Cardiomyopathy; echo with LVEF 25 to 30%. 4. AFIB/flutter with RVR: HR 110 5. Large ventral hernia; surgical team following PLAN: 1. Continue current medical therapy 2. Consider KIM/cardioversion on outpatient basis unless patient has difficulty with rate control. Ambulate and determine heart rate range. Supportive care for now. Justicifation of Admission Dx: Justifications for Admission: Justification of Admission Dx: Yes CHF: Cardiac Arrhythmias NAVYA FALL MD Aug 06, 2021 15:56
[2021-08-06] MEDS ORDERED: POLYETHYLENE GLYCOL 3350 BTL 238 GM POWDER PO ONE (16:00)
--- NOTE | 2021-08-06 16:49 | NUR ---
PATIENT HAD LARGE BOWEL MOVEMENT AND REFUSED MEDS THAT ORDERED BY .
[2021-08-06 19:05] VITALS: BP 116/61
[2021-08-06] MEDS: ATORVASTATIN CALCIUM 20 MG TABLET PO SCH (21:14)
[2021-08-06 23:00] VITALS: BP 102/58
[2021-08-07 03:05] VITALS: BP 128/89
[2021-08-07 05:27] LABS: BASO # 0.1 x10^3/uL (0.0-0.2); BASO % 1 % (0-3); EOS # 0.1 x10^3/uL (0.0-0.7); EOS % 2 % (0-3); HEMATOCRIT 42.9 % (39.0-53.0); HEMOGLOBIN 13.8 g/dL (13.0-17.5); LYMPH # 0.7 x10^3/uL (1.0-4.8); LYMPH % 13 % (24-48); MEAN CORPUSCULAR HEMOGLOBIN 29 pg (25-35); MEAN CORPUSCULAR HGB CONC 32 g/dL (31-37); MEAN CORPUSCULAR VOLUME 91 fL (79-100); MONO # 0.9 x10^3/uL (0.0-1.1); MONO % 16 % (0-9); NEUT # 3.9 x10^3/uL (1.8-7.7); NEUT % 68 % (31-73); PLATELET COUNT 215 x10^3/uL (140-400); RED BLOOD COUNT 4.71 x10^6/uL (4.30-5.70); RED CELL DISTRIBUTION WIDTH 15.1 % (11.5-14.5); WHITE BLOOD COUNT 5.7 x10^3/uL (4.0-11.0)
[2021-08-07 05:49] LABS: CALCIUM 8.5 mg/dL (8.5-10.1); CREATININE 0.8 mg/dL (0.7-1.3); GFR 98.9; POTASSIUM 3.9 mmol/L (3.5-5.1)
[2021-08-07 07:29] VITALS: BP 134/72
[2021-08-07] MEDS: METOPROLOL TART IMMED RELEASE 25 MG TABLET. PO SCH ×2 (08:35→21:50)
[2021-08-07] MEDS: AMOXICILLIN/K CLAV 875/125MG TABLET. PO SCH ×2 (08:35→21:50)
[2021-08-07] MEDS: ASPIRIN ENTERIC COATED 81 MG TABLET.DR. PO SCH (08:35)
[2021-08-07] MEDS: DOCUSATE SODIUM 100 MG CAPSULE. PO SCH (08:35)
[2021-08-07] MEDS: MULTIVITAMIN with MINERAL TABLET. PO SCH (08:36)
[2021-08-07] MEDS: LISINOPRIL 5 MG TABLET. PO SCH (08:36)
[2021-08-07] MEDS: LACTOBACILLUS RHAMNOSUS GG 1 CAPSULE. PO SCH ×2 (08:36→21:50)
[2021-08-07] MEDS: APIXABAN 5 MG TABLET. PO SCH ×2 (08:37→21:50)
[2021-08-07] MEDS: POTASSIUM CHLORIDE 20 MEQ TABLET.ER. PO SCH (08:37)
[2021-08-07] MEDS: SPIRONOLACTONE 25 MG TABLET PO SCH (08:38)
[2021-08-07] MEDS: FUROSEMIDE 40 MG/4 ML VIAL. IVP SCH ×2 (08:38→14:49)
--- NOTE | 2021-08-07 10:16 | PDOC ---
Date of Service: DATE: 08/07/21 TIME: 10:05 Subjective: Subjective: Tolerating liquids, would like more to eat. Stooled yesterday. Doesn't want anything for constipation. Abdomen always hurts - pain is stable. Says it has had the same appearance "forever." Objective: Objective: Reviewed chart - nursing note indicates large stool yesterday afternoon. Vital Signs: Vital Signs Date Time Temp Pulse Resp B/P (MAP) Pulse Ox O2 Delivery O2 Flow Rate FiO2 08/07/21 08:36 114 08/07/21 07:29 97.4 20 134/72 (92) 97 Nasal Cannula 2.0 97.4 Labs: Laboratory Tests Test 08/07/21 03:50 White Blood Count 5.7 x10^3/uL Red Blood Count 4.71 x10^6/uL Hemoglobin 13.8 g/dL Hematocrit 42.9 % Mean Corpuscular Volume 91 fL Mean Corpuscular Hemoglobin 29 pg Mean Corpuscular Hemoglobin Concent 32 g/dL Red Cell Distribution Width 15.1 % Platelet Count 215 x10^3/uL Neutrophils (%) (Auto) 68 % Lymphocytes (%) (Auto) 13 % Monocytes (%) (Auto) 16 % Eosinophils (%) (Auto) 2 % Basophils (%) (Auto) 1 % Neutrophils # (Auto) 3.9 x10^3/uL Lymphocytes # (Auto) 0.7 x10^3/uL Monocytes # (Auto) 0.9 x10^3/uL Eosinophils # (Auto) 0.1 x10^3/uL Basophils # (Auto) 0.1 x10^3/uL Sodium Level 138 mmol/L Potassium Level 3.9 mmol/L Chloride Level 95 mmol/L Carbon Dioxide Level 37 mmol/L Anion Gap 6 Blood Urea Nitrogen 9 mg/dL Creatinine 0.8 mg/dL Estimated GFR (Cockcroft-Gault) 98.9 Glucose Level 132 mg/dL Calcium Level 8.5 mg/dL PE: GEN: NAD - sitting up in bed LUNGS: CTAB HEART: tachycardic ABD: massive ventral hernia, skin and subcutaneous edema, non-tender EXTREM: some BLE edema NEURO/PSYCH: A & O 3 A/P: CHF, cardiomyopathy, A Fib/flutter Constipation (?OIC) - now stooling (apparently stooled before taking Relistor and Miralax) Large ventral hernia w/ SB, colon, and fluid (no obstruction) - high risk for repair COVID negative -- Okay to advance diet per GI. Monitor stooling. Justicifation of Admission Dx: Justifications for Admission: Justification of Admission Dx: Yes CHF: Cardiac Arrhythmias NIKKI MCCULLOUGH Aug 07, 2021 10:16
[2021-08-07 10:45] VITALS: BP 132/83
--- NOTE | 2021-08-07 11:31 | PDOC ---
[employer] PROGRESS NOTE Date of Service DOS: DATE: 08/07/21 TIME: 11:24 Chief Complaint Chief Complaint Respiratory failure Massive abdominal hernia A. fib CHF Cellulitis Noncompliance Constipation History of Present Illness History of Present Illness 08/07 Patient seen and examined Patient pleasant and controversational Reported large bowel movement yesterday Chart reviewed DW RN 08/06 Patient seen and examined while sitting in chair. Patient pleasant, and conversational Patient reported BM last night. Chart reviewed. Discussed case with RN 08/05 Patient seen and examined. Patient walking about room, pleasant, and conversational Patient still reporting no bowel movement for several days. Chart reviewed. Discussed case with RN and case management. 08/04 Patient seen and examined. Patient walking about room, pleasant, and conversational Patient reported no bowel movement. Chart reviewed. Discussed case with RN and case management. 08/03/2021 Patient seen and examined He is up in the chair His hernia is less swollen and less erythematous today the antibiotics and Lasix seem to be helping Chart reviewed Discussed with her Vitals/I&O Vitals/I&O: Vital Signs Date Time Temp Pulse Resp B/P (MAP) Pulse Ox O2 Delivery O2 Flow Rate FiO2 08/07/21 10:45 97.9 116 20 132/83 (99) 97 Nasal Cannula 2.0 97.9 I & O 08/06/21 08/06/21 08/07/21 15:00 23:00 07:00 Intake Total 760 ml 360 ml 300 ml Output Total 1500 ml 2000 ml 600 ml Balance -740 ml -1640 ml -300 ml Physical Exam Physical Exam: General: Alert, Oriented X3, Cooperative, No acute distress Heart: Other (AFIB with RVR ) Abdomen: large hernia defect, less distended, less erythematous Extremities: Normal pulses, Other (2+ bilateral LE edema ) Skin: No breakdown, No significant lesion General: Alert, Oriented X3, Cooperative, No acute distress Heart: Other (AFIB with RVR ) Abdomen: Soft, No tenderness Extremities: No clubbing, No cyanosis, Normal pulses, Other (2+ bilateral LE edema ) Skin: No breakdown, No significant lesion Labs Labs: Laboratory Tests Test 08/07/21 03:50 White Blood Count 5.7 x10^3/uL (4.0-11.0) Red Blood Count 4.71 x10^6/uL (4.30-5.70) Hemoglobin 13.8 g/dL (13.0-17.5) Hematocrit 42.9 % (39.0-53.0) Mean Corpuscular Volume 91 fL (79-100) Mean Corpuscular Hemoglobin 29 pg (25-35) Mean Corpuscular Hemoglobin Concent 32 g/dL (31-37) Red Cell Distribution Width 15.1 % (11.5-14.5) Platelet Count 215 x10^3/uL (140-400) Neutrophils (%) (Auto) 68 % (31-73) Lymphocytes (%) (Auto) 13 % (24-48) Monocytes (%) (Auto) 16 % (0-9) Eosinophils (%) (Auto) 2 % (0-3) Basophils (%) (Auto) 1 % (0-3) Neutrophils # (Auto) 3.9 x10^3/uL (1.8-7.7) Lymphocytes # (Auto) 0.7 x10^3/uL (1.0-4.8) Monocytes # (Auto) 0.9 x10^3/uL (0.0-1.1) Eosinophils # (Auto) 0.1 x10^3/uL (0.0-0.7) Basophils # (Auto) 0.1 x10^3/uL (0.0-0.2) Sodium Level 138 mmol/L (136-145) Potassium Level 3.9 mmol/L (3.5-5.1) Chloride Level 95 mmol/L (98-107) Carbon Dioxide Level 37 mmol/L (21-32) Anion Gap 6 (6-14) Blood Urea Nitrogen 9 mg/dL (8-26) Creatinine 0.8 mg/dL (0.7-1.3) Estimated GFR (Cockcroft-Gault) 98.9 Glucose Level 132 mg/dL (70-99) Calcium Level 8.5 mg/dL (8.5-10.1) Review of Systems Review of Systems: denies N/V, depression, or headaches. Assessment and Plan Assessmemt and Plan Assessment: Resolving respiratory failure Massive abdominal hernia A. fib CHF Cellulitis Noncompliance Constipation Plan: IV antibiotics Lasix Negative chronotropic agents Bowel hygiene Trend labs Home meds DVT prophylaxis PT OT if possible Full code Appreciate cardiology, nephrology, and general surgery input He will need to go to a tertiary care center to have the massive hernia repaired eventually Discharge when ok with subspecialist Comment Review of Relevant I have reviewed the following items elmira (where applicable) has been applied. Justifications for Admission Other Justification SHUKRI GIBBS III DO Aug 07, 2021 11:31
[2021-08-07 14:53] VITALS: BP 134/85
--- NOTE | 2021-08-07 15:38 | NUR ---
Nursin beat V tach reported to Bree, cardiology. Magnesium lab ordered. Will continue to monitor.
[2021-08-07] MEDS ORDERED: DIGOXIN IV 500 MCG/2 ML AMPUL. IV ONE (16:30)
--- NOTE | 2021-08-07 16:36 | PDOC ---
KE SILVER [employer]INE [employer] 08/07/21 1636: CARDIO Progress Notes Date and Time Date of Service 08/07/21 Time of Evaluation 1110 Subjective Subjective: No Chest Pain, No Palpitations, Other (breathing improved. ) Vitals Vitals Vital Signs Date Time Temp Pulse Resp B/P (MAP) Pulse Ox O2 Delivery O2 Flow Rate FiO2 08/07/21 14:53 97.9 116 20 134/85 (101) 96 Room Air 97.9 08/07/21 10:45 2.0 Weight Weight [ ] Input and Output Intake and Output Intake and Output 08/07/21 07:00 Intake Total 1420 ml Output Total 4100 ml Balance -2680 ml Intake Oral 1420 ml Output Urine Total 4100 ml Laboratory Labs Laboratory Tests Test 08/07/21 03:50 White Blood Count 5.7 x10^3/uL (4.0-11.0) Red Blood Count 4.71 x10^6/uL (4.30-5.70) Hemoglobin 13.8 g/dL (13.0-17.5) Hematocrit 42.9 % (39.0-53.0) Mean Corpuscular Volume 91 fL (79-100) Mean Corpuscular Hemoglobin 29 pg (25-35) Mean Corpuscular Hemoglobin Concent 32 g/dL (31-37) Red Cell Distribution Width 15.1 % (11.5-14.5) Platelet Count 215 x10^3/uL (140-400) Neutrophils (%) (Auto) 68 % (31-73) Lymphocytes (%) (Auto) 13 % (24-48) Monocytes (%) (Auto) 16 % (0-9) Eosinophils (%) (Auto) 2 % (0-3) Basophils (%) (Auto) 1 % (0-3) Neutrophils # (Auto) 3.9 x10^3/uL (1.8-7.7) Lymphocytes # (Auto) 0.7 x10^3/uL (1.0-4.8) Monocytes # (Auto) 0.9 x10^3/uL (0.0-1.1) Eosinophils # (Auto) 0.1 x10^3/uL (0.0-0.7) Basophils # (Auto) 0.1 x10^3/uL (0.0-0.2) Sodium Level 138 mmol/L (136-145) Potassium Level 3.9 mmol/L (3.5-5.1) Chloride Level 95 mmol/L (98-107) Carbon Dioxide Level 37 mmol/L (21-32) Anion Gap 6 (6-14) Blood Urea Nitrogen 9 mg/dL (8-26) Creatinine 0.8 mg/dL (0.7-1.3) Estimated GFR (Cockcroft-Gault) 98.9 Glucose Level 132 mg/dL (70-99) Calcium Level 8.5 mg/dL (8.5-10.1) Microbiology Micro Microbiology 08/02/21 Blood Culture - Final, Complete NO GROWTH AFTER 5 DAYS Physical Exam HEENT: Neck Supple W Full Motion Chest: Symmetric LUNGS: Other (diminished bases) Heart: irregularly irregular (AFIB, rate 115) Abdomen: Soft N/T, Other (obese ) Extremities: Other (1-2+ bilateral LE edema ) Neurology: alert, oriented, follow commands Assessment Assessment 1. Acute respiratory failure secondary to CHF 2. Acute on chronic systolic CHF; better 3. Cardiomyopathy; echo with LVEF 25 to 30%. (new finding) 4. AFIB/flutter with RVR; HR remains 115 range 5. Large ventral hernia; surgical team following Recommendations Ongoing diuresis with monitoring of renal function. add aldactone Dig IV x1 now. Will add scheduled digoxin Will plan for KIM guided CV in am if rate remains elevated. R/b/a discussed with patient and de is agreeable. Continue metoprolol for rate control; Ideally needs Toprol XL, but need to tailo r meds to $4 list as patient has limited resource with no med insurance Low-dose lisinopril ASA therapy Eliquis for stroke prophylaxis Supportive care Will need outpatient ischemic evaluation NPO p MN Justicifation of Admission Dx: Justifications for Admission: Justification of Admission Dx: Yes CHF: Cardiac Arrhythmias NAVYA FALL MD 08/07/21 1713: KE SILVER APRN Aug 07, 2021 16:36 NAVYA FALL MD Aug 07, 2021 17:13
[2021-08-07] MEDS ORDERED: 0.9 % SODIUM CHLORIDE 10 ML DISP.SYRIN. IV PRN (16:45)
--- NOTE | 2021-08-07 16:46 | NUR ---
SS following up with discharge planning. SS reviewed pt chart and discussed with pt RN. Pt is from home and is currently requiring oxygen at two liters nasal canula. COVID19 negative. Pt on IV Lasix and PO Amoxicillin. Cardiology and GI following. PT/OT recommended home. Self pay. Med Assist following. SS will continue to follow for discharge planning.
[2021-08-07] MEDS: oxyCODONE/APAP 5/325 1 TAB TABLET PO PRN (18:25)
[2021-08-07 19:17] VITALS: BP 167/72
--- NOTE | 2021-08-07 19:50 | NUR ---
Pt sitting up in chair assessment completed vss poc explained pt stated his pain is better after taken pain med call light in reach will resume care and continue to monitor pt.
[2021-08-07] MEDS: ATORVASTATIN CALCIUM 20 MG TABLET PO SCH (21:50)
[2021-08-07 22:51] VITALS: BP 148/73
[2021-08-08 02:48] VITALS: BP 141/86
[2021-08-08 05:36] LABS: BASO # 0.1 x10^3/uL (0.0-0.2); BASO % 1 % (0-3); EOS # 0.1 x10^3/uL (0.0-0.7); EOS % 3 % (0-3); HEMOGLOBIN 13.7 g/dL (13.0-17.5); LYMPH # 0.8 x10^3/uL (1.0-4.8); LYMPH % 14 % (24-48); MEAN CORPUSCULAR HEMOGLOBIN 29 pg (25-35); MEAN CORPUSCULAR HGB CONC 32 g/dL (31-37); MEAN CORPUSCULAR VOLUME 91 fL (79-100); MONO # 1.1 x10^3/uL (0.0-1.1); MONO % 19 % (0-9); NEUT # 3.6 x10^3/uL (1.8-7.7); NEUT % 64 % (31-73); PLATELET COUNT 210 x10^3/uL (140-400); RED BLOOD COUNT 4.73 x10^6/uL (4.30-5.70); RED CELL DISTRIBUTION WIDTH 15.1 % (11.5-14.5); WHITE BLOOD COUNT 5.6 x10^3/uL (4.0-11.0)
[2021-08-08 06:11] LABS: CALCIUM 8.8 mg/dL (8.5-10.1); CREATININE 0.8 mg/dL (0.7-1.3); GFR 98.9; POTASSIUM 3.6 mmol/L (3.5-5.1)
[2021-08-08 07:00] VITALS: BP 145/80
[2021-08-08] MEDS: ASPIRIN ENTERIC COATED 81 MG TABLET.DR. PO SCH (08:00)
[2021-08-08] MEDS: APIXABAN 5 MG TABLET. PO SCH ×2 (08:40→21:30)
[2021-08-08] MEDS: DIGOXIN 125 MCG TABLET. PO SCH (08:40)
[2021-08-08] MEDS: LISINOPRIL 5 MG TABLET. PO SCH (08:41)
[2021-08-08] MEDS: POTASSIUM CHLORIDE 20 MEQ TABLET.ER. PO SCH (08:41)
[2021-08-08] MEDS ORDERED: 0.9 % SODIUM CHLORIDE 10 ML DISP.SYRIN. IV PRN (08:45)
[2021-08-08] MEDS: FUROSEMIDE 40 MG/4 ML VIAL. IVP SCH ×2 (09:00→14:49)
[2021-08-08] MEDS: SPIRONOLACTONE 25 MG TABLET PO SCH (09:00)
[2021-08-08] MEDS: METOPROLOL TART IMMED RELEASE 25 MG TABLET. PO SCH ×2 (09:08→21:31)
[2021-08-08 09:12] LABS: % ATYL 1 % (0-0); % BANDS 2 % (0-9); % BASOS 1 % (0-3); % EOS 2 % (0-5); % SEGS 63 % (35-66)
[2021-08-08 09:13] LABS: % LYMPHS 15 % (24-48); % MONOS 16 % (0-10); PLT ESTIMATE ADEQUATE (ADEQUATE)
[2021-08-08 09:14] LABS: OVALOCYTES FEW
[2021-08-08] MEDS ORDERED: BENZOCAINE ONE 20% MUCOSAL SPRAY. MM (10:30)
[2021-08-08] MEDS ORDERED: LIDOCAINE 2% VISCOUS 15 ML SOLUTION. SWSW ONE (10:30)
[2021-08-08] MEDS ORDERED: LIDOCAINE 2% TOPICAL JELLY 30GM TUBE. TP ONE ×2 (10:30→11:11)
--- NOTE | 2021-08-08 11:05 | PDOC ---
[employer] PROGRESS NOTE Date of Service DOS: DATE: 08/08/21 TIME: 10:59 Chief Complaint Chief Complaint Resolving respiratory failure A. fib with RVR Massive abdominal hernia A. fib CHF Cellulitis Noncompliance Constipation History of Present Illness History of Present Illness 08/08 Patient Seen and examined Patient pleasant and conversational Reports muscle spasms at night Chart reviewed DW RN 08/07 Patient seen and examined Patient pleasant and conversational Reported large bowel movement yesterday Chart reviewed DW RN 08/06 Patient seen and examined while sitting in chair. Patient pleasant, and conversational Patient reported BM last night. Chart reviewed. Discussed case with RN 08/05 Patient seen and examined. Patient walking about room, pleasant, and conversational Patient still reporting no bowel movement for several days. Chart reviewed. Discussed case with RN and case management. 08/04 Patient seen and examined. Patient walking about room, pleasant, and conversational Patient reported no bowel movement. Chart reviewed. Discussed case with RN and case management. 08/03/2021 Patient seen and examined He is up in the chair His hernia is less swollen and less erythematous today the antibiotics and Lasix seem to be helping Chart reviewed Discussed with her Vitals/I&O Vitals/I&O: Vital Signs Date Time Temp Pulse Resp B/P (MAP) Pulse Ox O2 Delivery O2 Flow Rate FiO2 08/08/21 09:08 117 145/80 08/08/21 07:00 98.5 16 96 Room Air 98.5 08/07/21 19:50 2.0 I & O 08/07/21 08/07/21 08/08/21 15:00 23:00 07:00 Intake Total 850 ml 240 ml 0 ml Output Total 3000 ml 3800 ml Balance -2150 ml -3560 ml 0 ml Physical Exam Physical Exam: General: Alert, Oriented X3, Cooperative, No acute distress Heart: Other (AFIB with RVR ) Abdomen: large hernia defect, less distended, less erythematous Extremities: Normal pulses, Other (2+ bilateral LE edema ) Skin: No breakdown, No significant lesion General: Alert, Oriented X3, Cooperative, No acute distress Heart: Other (AFIB with RVR ) Abdomen: Soft, No tenderness Extremities: No clubbing, No cyanosis, Normal pulses, Other (2+ bilateral LE edema ) Skin: No breakdown, No significant lesion Labs Labs: Laboratory Tests Test 08/08/21 03:45 White Blood Count 5.6 x10^3/uL (4.0-11.0) Red Blood Count 4.73 x10^6/uL (4.30-5.70) Hemoglobin 13.7 g/dL (13.0-17.5) Hematocrit 43.0 % (39.0-53.0) Mean Corpuscular Volume 91 fL (79-100) Mean Corpuscular Hemoglobin 29 pg (25-35) Mean Corpuscular Hemoglobin Concent 32 g/dL (31-37) Red Cell Distribution Width 15.1 % (11.5-14.5) Platelet Count 210 x10^3/uL (140-400) Neutrophils (%) (Auto) 64 % (31-73) Lymphocytes (%) (Auto) 14 % (24-48) Monocytes (%) (Auto) 19 % (0-9) Eosinophils (%) (Auto) 3 % (0-3) Basophils (%) (Auto) 1 % (0-3) Neutrophils # (Auto) 3.6 x10^3/uL (1.8-7.7) Lymphocytes # (Auto) 0.8 x10^3/uL (1.0-4.8) Monocytes # (Auto) 1.1 x10^3/uL (0.0-1.1) Eosinophils # (Auto) 0.1 x10^3/uL (0.0-0.7) Basophils # (Auto) 0.1 x10^3/uL (0.0-0.2) Segmented Neutrophils % 63 % (35-66) Band Neutrophils % 2 % (0-9) Lymphocytes % 15 % (24-48) Atypical Lymphocytes % (Manual) 1 % (0-0) Monocytes % 16 % (0-10) Eosinophils % 2 % (0-5) Basophils % 1 % (0-3) Platelet Estimate Adequate (ADEQUATE) Large Platelets Occ Ovalocytes Few Sodium Level 141 mmol/L (136-145) Potassium Level 3.6 mmol/L (3.5-5.1) Chloride Level 100 mmol/L (98-107) Carbon Dioxide Level 38 mmol/L (21-32) Anion Gap 3 (6-14) Blood Urea Nitrogen 9 mg/dL (8-26) Creatinine 0.8 mg/dL (0.7-1.3) Estimated GFR (Cockcroft-Gault) 98.9 Glucose Level 90 mg/dL (70-99) Calcium Level 8.8 mg/dL (8.5-10.1) Review of Systems Review of Systems: denies N/V, depression, or headaches. Assessment and Plan Assessmemt and Plan Assessment: Resolving respiratory failure Massive abdominal hernia A. fib with RVR CHF Cellulitis Noncompliance Constipation Plan: Cardioversion today Cardiac monitoring Appreciate cardiology consult Flexeril 10 mg every 8 hours as needed Continue the following: IV antibiotics Lasix Negative chronotropic agents Bowel hygiene Trend labs Home meds DVT prophylaxis PT OT if possible Full code He will need to go to a tertiary care center to have the massive hernia repaired eventually Discharge when ok with subspecialist Comment Review of Relevant I have reviewed the following items elmira (where applicable) has been applied. Medications: Current Medications Medications (Trade) Dose Ordered Sig/Lupillo Route PRN Reason Start Time Stop Time Status Last Admin Dose Admin Digoxin (Lanoxin) 500 mcg 1X ONCE IV 08/07/21 16:30 08/07/21 16:31 DC 08/07/21 18:15 Digoxin (Lanoxin) 125 mcg DAILY PO 08/08/21 09:00 08/08/21 08:40 Justifications for Admission Other Justification SHUKRI GIBBS III DO Aug 08, 2021 11:05
--- NOTE | 2021-08-08 11:05 | PDOC ---
Date of Service: DATE: 08/08/21 TIME: 11:02 Objective: Objective: D/w nurse - no GI concerns. Tolerating diet, stooled yesterday. Plan for for KIM/cardioversion, possible DC today or tomorrow. Vital Signs: Vital Signs Date Time Temp Pulse Resp B/P (MAP) Pulse Ox O2 Delivery O2 Flow Rate FiO2 08/08/21 09:08 117 145/80 08/08/21 07:00 98.5 16 96 Room Air 98.5 08/07/21 19:50 2.0 Labs: Laboratory Tests Test 08/08/21 03:45 White Blood Count 5.6 x10^3/uL Red Blood Count 4.73 x10^6/uL Hemoglobin 13.7 g/dL Hematocrit 43.0 % Mean Corpuscular Volume 91 fL Mean Corpuscular Hemoglobin 29 pg Mean Corpuscular Hemoglobin Concent 32 g/dL Red Cell Distribution Width 15.1 % Platelet Count 210 x10^3/uL Neutrophils (%) (Auto) 64 % Lymphocytes (%) (Auto) 14 % Monocytes (%) (Auto) 19 % Eosinophils (%) (Auto) 3 % Basophils (%) (Auto) 1 % Neutrophils # (Auto) 3.6 x10^3/uL Lymphocytes # (Auto) 0.8 x10^3/uL Monocytes # (Auto) 1.1 x10^3/uL Eosinophils # (Auto) 0.1 x10^3/uL Basophils # (Auto) 0.1 x10^3/uL Segmented Neutrophils % 63 % Band Neutrophils % 2 % Lymphocytes % 15 % Atypical Lymphocytes % (Manual) 1 % Monocytes % 16 % Eosinophils % 2 % Basophils % 1 % Platelet Estimate Adequate Large Platelets Occ Ovalocytes Few Sodium Level 141 mmol/L Potassium Level 3.6 mmol/L Chloride Level 100 mmol/L Carbon Dioxide Level 38 mmol/L Anion Gap 3 Blood Urea Nitrogen 9 mg/dL Creatinine 0.8 mg/dL Estimated GFR (Cockcroft-Gault) 98.9 Glucose Level 90 mg/dL Calcium Level 8.8 mg/dL PE: GEN: NAD LUNGS: clear, room air HEART: tachycardic/irregular ABD: large hernia, apparently non-tender NEURO/PSYCH: sleeping - he did not awaken during exam A/P: A Fib Constipation - resolved Large ventral hernia containing small bowel and colon -- Stable GI-guan. Continue per cardiology. Justicifation of Admission Dx: Justifications for Admission: Justification of Admission Dx: Yes CHF: Cardiac Arrhythmias NIKKI MCCULLOUGH Aug 08, 2021 11:05
[2021-08-08 11:07] VITALS: BP 150/92
[2021-08-08] MEDS ORDERED: LIDOCAINE 2% VISCOUS 15 ML SOLUTION. ONE (11:10)
[2021-08-08] MEDS ORDERED: PROPOFOL 10 MG/ML (20ML) VIAL. IV ONE (12:32)
--- NOTE | 2021-08-08 13:28 | NUR ---
SS following up with discharge planning. SS reviewed pt chart and discussed with pt RN. Pt is currently requiring oxygen at two liters nasal canula. COVID19 negative. Pt on IV Lasix. Pt having KIM with Cardioversion today. PT/OT recommended home. SS will continue to follow for discharge planning.
--- NOTE | 2021-08-08 14:27 | EKG ---
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
--- NOTE | 2021-08-08 14:37 | CARD ---
MR#: [id number] Date of Study: 08/08/2021 Ordering Physician: ABIGAIL DUFF, Referring Physician: ABIGAIL DUFF, Tech: Monica Navarro, [facility] APPROVED REPORT EXAM: Transesophageal echocardiogram with color flow Doppler and Synchronized Cardioversion. INDICATION Atrial Fibrillation Congestive Heart Failure Reason For Test : Rule out Intracardiac Thrombus. PROCEDURE After obtaining informed consent, patient underwent transesophageal echo in the PACU. Type of Sedation : General Anesthesia Sedation was administered by Dr. Harrell. Sedation was achieved with Propofol 200mg intravenously. Transesophageal probe was inserted and advanced into esophagus by Gaurav Cheng MD. The KIM was performed without complications. Synchronized Cardioversion attempted: Successful Synchronized Cardioversion acheived with 200 Joules after 1 attempt(s). Rhythm following Synchronized Cardioversion: Sinus Bradycardia Throughout the procedure, the blood pressure, pulse oximetry, cardiac rhythm, and rate were monitored . The patient tolerated the procedure without adverse effects. Recovery from general anesthesia was une ventful and vital signs were stable. LEFT VENTRICLE The Left Ventricle is borderline dilated. There is normal left ventricular wall thickness. The systol ic function is moderately to severely impaired. The Ejection Fraction is 30%. There is global hypokin esis of the left ventricle. Wall motion consistent with conduction abnormality. No left ventricle thr ombus noted on this study. RIGHT VENTRICLE The right ventricle is moderately dilated. There is normal right ventricular wall thickness. The righ t ventricular systolic function is normal. ATRIA The left atrium is moderately dilated. The right atrium is severely dilated. The interatrial septum i s intact with no evidence for an atrial septal defect or patent foramen ovale as noted on 2-D or Dopp ler imaging. There is no thrombus noted in the left atrial appendage. AORTIC VALVE The aortic valve is normal in structure and function. Doppler and Color Flow revealed mild aortic reg urgitation. There is no significant aortic valvular stenosis. MITRAL VALVE The mitral valve is normal in structure and function. There is no evidence of mitral valve prolapse. There is no mitral valve stenosis. Doppler and Color-flow revealed trace to mild mitral regurgitation . TRICUSPID VALVE The tricuspid valve is normal in structure and function. Doppler and Color Flow revealed mild tricusp id regurgitation. There is no tricuspid valve stenosis. PULMONIC VALVE The pulmonic valve is not well visualized. GREAT VESSELS The aortic root is normal in size. Critical Notification Critical Value: No <Conclusion> The systolic function is moderately to severely impaired. The Ejection Fraction is 30%. There is global hypokinesis of the left ventricle. Wall motion consistent with conduction abnormality . The right ventricle is moderately dilated. There is no thrombus noted in the left atrial appendage. Successful CVN to SR. Signed by : Sharad Cheng, Electronically Approved : 08/08/2021 14:36:52
[2021-08-08] MEDS: DOCUSATE SODIUM 100 MG CAPSULE. PO SCH (14:52)
[2021-08-08] MEDS: MULTIVITAMIN with MINERAL TABLET. PO SCH (14:52)
[2021-08-08] MEDS: LACTOBACILLUS RHAMNOSUS GG 1 CAPSULE. PO SCH ×2 (14:53→21:30)
[2021-08-08] MEDS: AMOXICILLIN/K CLAV 875/125MG TABLET. PO SCH ×2 (14:53→21:30)
[2021-08-08 15:13] VITALS: BP 129/71
[2021-08-08 19:30] VITALS: BP 119/73
--- NOTE | 2021-08-08 19:40 | NUR ---
Pt in bed assessment completed vss poc explained pt c/o lower abd. pain and leg spasms will medicate pt and continue to monitor pt. call light in reach.
[2021-08-08] MEDS: oxyCODONE/APAP 10/325 1 TAB TABLET PO PRN (19:59)
[2021-08-08] MEDS: ATORVASTATIN CALCIUM 20 MG TABLET PO SCH (21:30)
[2021-08-08 22:00] VITALS: BP 114/72
--- NOTE | 2021-08-08 22:14 | NUR ---
Call placed to Dr. Schreiber Re: pt request medication to help with leg spasms.
[2021-08-08] MEDS: CYCLOBENZAPRINE 10 MG TABLET. PO PRN (22:51)
[2021-08-09 02:34] VITALS: BP 100/48
[2021-08-09 05:19] LABS: BASO # 0.1 x10^3/uL (0.0-0.2); BASO % 1 % (0-3); EOS # 0.2 x10^3/uL (0.0-0.7); EOS % 3 % (0-3); HEMATOCRIT 41.9 % (39.0-53.0); HEMOGLOBIN 13.6 g/dL (13.0-17.5); LYMPH # 1.3 x10^3/uL (1.0-4.8); LYMPH % 24 % (24-48); MEAN CORPUSCULAR HEMOGLOBIN 29 pg (25-35); MEAN CORPUSCULAR HGB CONC 33 g/dL (31-37); MEAN CORPUSCULAR VOLUME 90 fL (79-100); MONO % 18 % (0-9); NEUT # 2.9 x10^3/uL (1.8-7.7); NEUT % 54 % (31-73); PLATELET COUNT 220 x10^3/uL (140-400); RED BLOOD COUNT 4.66 x10^6/uL (4.30-5.70); RED CELL DISTRIBUTION WIDTH 14.9 % (11.5-14.5); WHITE BLOOD COUNT 5.4 x10^3/uL (4.0-11.0)
[2021-08-09 05:40] LABS: CALCIUM 8.6 mg/dL (8.5-10.1); GFR 76.5; POTASSIUM 3.5 mmol/L (3.5-5.1)
[2021-08-09 07:00] VITALS: BP 107/61
[2021-08-09] MEDS: CYCLOBENZAPRINE 10 MG TABLET. PO PRN (07:56)
[2021-08-09] MEDS: FUROSEMIDE 40 MG/4 ML VIAL. IVP SCH ×2 (07:56→14:00)
[2021-08-09] MEDS: LACTOBACILLUS RHAMNOSUS GG 1 CAPSULE. PO SCH (07:56)
[2021-08-09] MEDS: ASPIRIN ENTERIC COATED 81 MG TABLET.DR. PO SCH (07:56)
[2021-08-09] MEDS: METOPROLOL TART IMMED RELEASE 25 MG TABLET. PO SCH (07:57)
[2021-08-09] MEDS: DIGOXIN 125 MCG TABLET. PO SCH (07:57)
[2021-08-09] MEDS: POTASSIUM CHLORIDE 20 MEQ TABLET.ER. PO SCH (07:58)
[2021-08-09] MEDS: AMOXICILLIN/K CLAV 875/125MG TABLET. PO SCH (07:58)
[2021-08-09] MEDS: DOCUSATE SODIUM 100 MG CAPSULE. PO SCH (07:58)
[2021-08-09] MEDS: LISINOPRIL 5 MG TABLET. PO SCH (07:58)
[2021-08-09] MEDS: MULTIVITAMIN with MINERAL TABLET. PO SCH (07:58)
[2021-08-09] MEDS: SPIRONOLACTONE 25 MG TABLET PO SCH (07:59)
[2021-08-09] MEDS: APIXABAN 5 MG TABLET. PO SCH (07:59)
--- NOTE | 2021-08-09 09:54 | PDOC ---
[employer] PROGRESS NOTE Date of Service DOS: DATE: 08/09/21 TIME: 09:48 Chief Complaint Chief Complaint Resolving respiratory failure A. fib with RVR Massive abdominal hernia A. fib CHF Cellulitis Noncompliance Constipation History of Present Illness History of Present Illness 08/09 Patient seen and examined NAD Successful cardioversion yesterday Currently in sinus rhythm at 73 bpm Patient sitting comfortably at bedside Chart reviewed DW RN 08/08 Patient Seen and examined Patient pleasant and conversational Reports muscle spasms at night Chart reviewed DW RN 08/07 Patient seen and examined Patient pleasant and conversational Reported large bowel movement yesterday Chart reviewed DW RN 08/06 Patient seen and examined while sitting in chair. Patient pleasant, and conversational Patient reported BM last night. Chart reviewed. Discussed case with RN 08/05 Patient seen and examined. Patient walking about room, pleasant, and conversational Patient still reporting no bowel movement for several days. Chart reviewed. Discussed case with RN and case management. 08/04 Patient seen and examined. Patient walking about room, pleasant, and conversational Patient reported no bowel movement. Chart reviewed. Discussed case with RN and case management. 08/03/2021 Patient seen and examined He is up in the chair His hernia is less swollen and less erythematous today the antibiotics and Lasix seem to be helping Chart reviewed Discussed with her Vitals/I&O Vitals/I&O: Vital Signs Date Time Temp Pulse Resp B/P (MAP) Pulse Ox O2 Delivery O2 Flow Rate FiO2 08/09/21 08:00 Room Air 08/09/21 07:58 80 107/61 08/09/21 07:00 97.6 20 92 2.0 97.6 I & O 08/08/21 08/08/21 08/09/21 15:00 23:00 07:00 Intake Total 400 ml 250 ml 1140 ml Output Total 1300 ml 2700 ml 350 ml Balance -900 ml -2450 ml 790 ml Physical Exam Physical Exam: General: Alert, Oriented X3, Cooperative, No acute distress Heart: Other (AFIB with RVR ) Abdomen: large hernia defect, less distended, less erythematous Extremities: Normal pulses, Other (2+ bilateral LE edema ) Skin: No breakdown, No significant lesion General: Alert, Oriented X3, Cooperative, No acute distress Heart: Other (AFIB with RVR ) Abdomen: Soft, No tenderness Extremities: No clubbing, No cyanosis, Normal pulses, Other (2+ bilateral LE edema ) Skin: No breakdown, No significant lesion Labs Labs: Laboratory Tests Test 08/09/21 03:55 White Blood Count 5.4 x10^3/uL (4.0-11.0) Red Blood Count 4.66 x10^6/uL (4.30-5.70) Hemoglobin 13.6 g/dL (13.0-17.5) Hematocrit 41.9 % (39.0-53.0) Mean Corpuscular Volume 90 fL (79-100) Mean Corpuscular Hemoglobin 29 pg (25-35) Mean Corpuscular Hemoglobin Concent 33 g/dL (31-37) Red Cell Distribution Width 14.9 % (11.5-14.5) Platelet Count 220 x10^3/uL (140-400) Neutrophils (%) (Auto) 54 % (31-73) Lymphocytes (%) (Auto) 24 % (24-48) Monocytes (%) (Auto) 18 % (0-9) Eosinophils (%) (Auto) 3 % (0-3) Basophils (%) (Auto) 1 % (0-3) Neutrophils # (Auto) 2.9 x10^3/uL (1.8-7.7) Lymphocytes # (Auto) 1.3 x10^3/uL (1.0-4.8) Monocytes # (Auto) 1.0 x10^3/uL (0.0-1.1) Eosinophils # (Auto) 0.2 x10^3/uL (0.0-0.7) Basophils # (Auto) 0.1 x10^3/uL (0.0-0.2) Sodium Level 139 mmol/L (136-145) Potassium Level 3.5 mmol/L (3.5-5.1) Chloride Level 99 mmol/L (98-107) Carbon Dioxide Level 35 mmol/L (21-32) Anion Gap 5 (6-14) Blood Urea Nitrogen 13 mg/dL (8-26) Creatinine 1.0 mg/dL (0.7-1.3) Estimated GFR (Cockcroft-Gault) 76.5 Glucose Level 107 mg/dL (70-99) Calcium Level 8.6 mg/dL (8.5-10.1) Review of Systems Review of Systems: denies N/V, depression, or headaches. Assessment and Plan Assessmemt and Plan Assessment: Resolving respiratory failure Massive abdominal hernia A. fib with RVR CHF: EF 25-30% Cellulitis Noncompliance Constipation Plan: Probable discharge later today for now continue the following; Cardiac monitoring Flexeril 10 mg every 8 hours as needed IV antibiotics Lasix Negative chronotropic agents Bowel hygiene Trend labs Home meds DVT prophylaxis PT OT if possible Full code He will need to go to a tertiary care center to have the massive hernia repaired eventually I faxed over numerous prescriptions for him to [facility] [address] Comment Review of Relevant I have reviewed the following items elmira (where applicable) has been applied. Medications: Current Medications Medications (Trade) Dose Ordered Sig/Lupillo Route PRN Reason Start Time Stop Time Status Last Admin Dose Admin Lidocaine HCl (Xylocaine 2% Topical 30gm Tube) 1 bernabe 1X ONCE TP 08/08/21 10:30 08/08/21 10:31 DC 08/08/21 13:03 Lidocaine HCl (Viscous Lidocaine) 15 ml 1X ONCE SWSW 08/08/21 10:30 08/08/21 10:31 DC 08/08/21 10:30 Benzocaine (Hurricaine One) 2 spray 1X ONCE MM 08/08/21 10:30 08/08/21 10:31 DC 08/08/21 13:03 Cyclobenzaprine HCl (Flexeril) 10 mg PRN Q8HRS PRN PO MUSCLE SPASMS 08/08/21 23:00 08/09/21 07:56 Justifications for Admission Other Justification SHUKRI GIBBS III DO Aug 09, 2021 09:54
--- NOTE | 2021-08-09 10:55 | PDOC ---
Date of Service: DATE: 08/09/21 TIME: 10:51 Subjective: Subjective: Walking around room. No GI complaints. Eating and stooling without issue. Hopes to go home today. Objective: Vital Signs: Vital Signs Date Time Temp Pulse Resp B/P (MAP) Pulse Ox O2 Delivery O2 Flow Rate FiO2 08/09/21 08:00 Room Air 08/09/21 07:58 80 107/61 08/09/21 07:00 97.6 20 92 2.0 97.6 Labs: Laboratory Tests Test 08/09/21 03:55 White Blood Count 5.4 x10^3/uL Red Blood Count 4.66 x10^6/uL Hemoglobin 13.6 g/dL Hematocrit 41.9 % Mean Corpuscular Volume 90 fL Mean Corpuscular Hemoglobin 29 pg Mean Corpuscular Hemoglobin Concent 33 g/dL Red Cell Distribution Width 14.9 % Platelet Count 220 x10^3/uL Neutrophils (%) (Auto) 54 % Lymphocytes (%) (Auto) 24 % Monocytes (%) (Auto) 18 % Eosinophils (%) (Auto) 3 % Basophils (%) (Auto) 1 % Neutrophils # (Auto) 2.9 x10^3/uL Lymphocytes # (Auto) 1.3 x10^3/uL Monocytes # (Auto) 1.0 x10^3/uL Eosinophils # (Auto) 0.2 x10^3/uL Basophils # (Auto) 0.1 x10^3/uL Sodium Level 139 mmol/L Potassium Level 3.5 mmol/L Chloride Level 99 mmol/L Carbon Dioxide Level 35 mmol/L Anion Gap 5 Blood Urea Nitrogen 13 mg/dL Creatinine 1.0 mg/dL Estimated GFR (Cockcroft-Gault) 76.5 Glucose Level 107 mg/dL Calcium Level 8.6 mg/dL Imaging: KIM <Conclusion> The systolic function is moderately to severely impaired. The Ejection Fraction is 30%. There is global hypokinesis of the left ventricle. Wall motion consistent with conduction abnormality. The right ventricle is moderately dilated. There is no thrombus noted in the left atrial appendage. Successful CVN to SR. PE: GEN: NAD - walking around room LUNGS: CTAB HEART: RRR ABD: large ventral hernia NEURO/PSYCH: A & O 3 A/P: A Fib s/p CV Large ventral hernia containing small bowel and colon -- DC per primary and cardiology. Justicifation of Admission Dx: Justifications for Admission: Justification of Admission Dx: Yes CHF: Cardiac Arrhythmias NIKKI MCCULLOUGH Aug 09, 2021 10:55
[2021-08-09 11:00] VITALS: BP 112/71
[2021-08-09] MEDS ORDERED: LISI5TAB15 PO (11:35)
[2021-08-09] MEDS ORDERED: ASPI-886 PO (11:35)
[2021-08-09] MEDS ORDERED: METO25TA4 PO (11:35)
[2021-08-09] MEDS ORDERED: ATOR20TA58 PO (11:35)
[2021-08-09] MEDS ORDERED: SPIR25TA PO (11:35)
[2021-08-09] MEDS ORDERED: CYCL10TA19 PO (11:35)
[2021-08-09] MEDS ORDERED: AMOX1TAB11 PO (11:35)
[2021-08-09] MEDS ORDERED: APIX5TAB PO (11:35)
[2021-08-09] MEDS ORDERED: POTA20TA4 PO (11:35)
[2021-08-09] MEDS ORDERED: FURO-69 PO (11:35)
[2021-08-09] MEDS ORDERED: OXYC1TAB15 PO (11:35)
[2021-08-09] MEDS ORDERED: DIGO125T3 PO (11:35)
--- NOTE | 2021-08-09 11:47 | PDOC ---
CARDIO Progress Notes Date and Time Date of Service 08/09/21 Time of Evaluation 1150 Subjective Subjective: No Chest Pain, No Palpitations, Other (breathing improved. ) Vitals Vitals Vital Signs Date Time Temp Pulse Resp B/P (MAP) Pulse Ox O2 Delivery O2 Flow Rate FiO2 08/09/21 11:00 97.7 71 20 112/71 (85) 92 Nasal Cannula 2.0 97.7 Weight Weight [ ] Input and Output Intake and Output Intake and Output 08/09/21 07:00 Intake Total 1790 ml Output Total 4350 ml Balance -2560 ml Intake Oral 1790 ml Output Urine Total 4350 ml # Bowel Movements 3 Laboratory Labs Laboratory Tests Test 08/09/21 03:55 White Blood Count 5.4 x10^3/uL (4.0-11.0) Red Blood Count 4.66 x10^6/uL (4.30-5.70) Hemoglobin 13.6 g/dL (13.0-17.5) Hematocrit 41.9 % (39.0-53.0) Mean Corpuscular Volume 90 fL (79-100) Mean Corpuscular Hemoglobin 29 pg (25-35) Mean Corpuscular Hemoglobin Concent 33 g/dL (31-37) Red Cell Distribution Width 14.9 % (11.5-14.5) Platelet Count 220 x10^3/uL (140-400) Neutrophils (%) (Auto) 54 % (31-73) Lymphocytes (%) (Auto) 24 % (24-48) Monocytes (%) (Auto) 18 % (0-9) Eosinophils (%) (Auto) 3 % (0-3) Basophils (%) (Auto) 1 % (0-3) Neutrophils # (Auto) 2.9 x10^3/uL (1.8-7.7) Lymphocytes # (Auto) 1.3 x10^3/uL (1.0-4.8) Monocytes # (Auto) 1.0 x10^3/uL (0.0-1.1) Eosinophils # (Auto) 0.2 x10^3/uL (0.0-0.7) Basophils # (Auto) 0.1 x10^3/uL (0.0-0.2) Sodium Level 139 mmol/L (136-145) Potassium Level 3.5 mmol/L (3.5-5.1) Chloride Level 99 mmol/L (98-107) Carbon Dioxide Level 35 mmol/L (21-32) Anion Gap 5 (6-14) Blood Urea Nitrogen 13 mg/dL (8-26) Creatinine 1.0 mg/dL (0.7-1.3) Estimated GFR (Cockcroft-Gault) 76.5 Glucose Level 107 mg/dL (70-99) Calcium Level 8.6 mg/dL (8.5-10.1) Microbiology Micro Microbiology 08/02/21 Blood Culture - Final, Complete NO GROWTH AFTER 5 DAYS Physical Exam HEENT: Neck Supple W Full Motion Chest: Symmetric LUNGS: Other (diminished bases) Heart: RRR (SR) Abdomen: Soft N/T, Other (obese ) Extremities: Other (1+ bilateral LE edema ) Neurology: alert, oriented, follow commands Assessment Assessment 1. Acute respiratory failure secondary to CHF 2. Acute on chronic systolic CHF; improved with IV diuresis 3. Cardiomyopathy; echo with LVEF 25 to 30%. (new finding) 4. AFIB/flutter with RVR; s/p successful CV 5. Large ventral hernia; surgical team following Recommendations Convert to oral Lasix Continue metoprolol and Digoxin for rate control. Meds tailored to $4 Low-dose lisinopril Eliquis for stroke prophylaxis; samples provided Supportive care Will need outpatient ischemic evaluation Follow up in our office with Dr. Chavarria. Contact information was provided Justicifation of Admission Dx: Justifications for Admission: Justification of Admission Dx: Yes CHF: Cardiac Arrhythmias KE SILVER APRN Aug 09, 2021 11:47
[2021-08-09] MEDS: oxyCODONE/APAP 10/325 1 TAB TABLET PO PRN (12:36)
--- NOTE | 2021-08-09 13:01 | NUR ---
SS following up with discharge planning. SS reviewed pt chart and discussed with pt RN. Pt is currently on room air. COVID19 negative. Pt on PO medications. PT/OT recommended home. Self pay. Discharge order on the chart for home with self care. Addendum: 08/09/21 at 1420 by RAAD CASILLAS SS Pt expressing difficulty paying for medications. Pt provided with 30 day free trial Eliquis card and information for patient assistance program for [employer]. Pt provided with information on pt assistance programs in [place], [place]. Pt's RN notified.
[2021-08-09 14:59] VITALS: BP 107/57
== END 2021-08-09 16:28 | disposition home or self-care (01) | DRG 291 ==
LOC: ER 00:53 → ED HOLD 03:15 → 6 SOUTH 08:30
PROVIDERS: ADMIT Student in an Organized Health Care Education/Training Program; ATTEND Student in an Organized Health Care Education/Training Program
PROC: 5A2204Z Restoration of Cardiac Rhythm, Single (ICD-10-PCS; principal; 2021-08-08 12:30)
PROC: B24BZZ4 Ultrasonography of Heart with Aorta, Transesophageal (ICD-10-PCS; 2021-08-08 12:30)
DX: I50.43 Acute on chronic combined systolic (congestive) and diastolic (congestive) heart failure (principal); J96.00 Acute respiratory failure, unspecified whether with hypoxia or hypercapnia; L03.311 Cellulitis of abdominal wall; I42.9 Cardiomyopathy, unspecified; I48.92 Unspecified atrial flutter; R18.8 Other ascites; I48.91 Unspecified atrial fibrillation; K43.9 Ventral hernia without obstruction or gangrene; K59.00 Constipation, unspecified; Z82.49 Family history of ischemic heart disease and other diseases of the circulatory system; Z83.3 Family history of diabetes mellitus; Z91.19 Patient's noncompliance with other medical treatment and regimen; Z20.822 Contact with and (suspected) exposure to COVID-19
CPT/HCPCS: 36415; 71045; 71275; 74177; 80048; 80053; 80061; 80202; 80307; 81001; 82565; 83605; 83690; 83735; 83880; 84132; 84443; 84484; 85007; 85025; 85610; 85730; 87040; 87426; 92960; 93005; 93306; 93312; 93970; 96365; 96366; 96375; 96376; J1160; J1940; J2270; J2543; J2704; J3370; J3490; J7030; J7040; Q9956; Q9967; U0003; U0005; 97116-GP; 97530-GP; 97535-GO; 99291-25; G0378

== ENCOUNTER → 2022-01-01 | Outpatient (CLI) | payer OTHER ==
[~2022-01-01] MED LIST: AMOX1TAB11 PO; APIX5TAB PO; ASPI-886 PO; ATOR20TA58 PO; CYCL10TA19 PO; DIGO125T3 PO; FURO-69 PO; LISI5TAB15 PO; METO25TA4 PO; OXYC1TAB15 PO; POTA20TA4 PO; SPIR25TA PO; [UNRECOGNIZED DRUG - REMARK]
--- NOTE | 2022-01-01 10:24 | RAD ---
PA and lateral views of the chest. Comparison: 08/02/2021. Indication: COPD Findings: Lungs are hyperexpanded with flattening of bilateral hemidiaphragms. The heart size is enlarged but s table. No pneumothorax or effusion. No air space or interstitial disease. The bony structures are in tact. Impression: 1. No acute cardiopulmonary process. 2 findings suggest COPD. Electronically signed by: Silverio Lopez MD (01/01/2022 10:21 AM) [id number]
== END ==
LOC: RAD 09:32
PROVIDERS: ATTEND Family Medicine
DX: Z02.71 Encounter for disability determination (principal); I51.7 Cardiomegaly; J98.6 Disorders of diaphragm
CPT/HCPCS: 71046